=== PATIENT | male | born 1960 | race Caucasian/White ===

== ENCOUNTER 2019-08-18 15:30 | Outpatient (CLI) | payer BC, SELFPAY ==
--- NOTE | ~2019-08-18 | XR_ITS ---
EXAMINATION: XR chest 2V 08/18/2019 15:47 INDICATION: Cough PROCEDURE: 2 view chest COMPARISON: No prior studies for comparison. FINDINGS: The lungs are clear. The cardiomediastinal silhouette is within normal limits. There are no pleural effusions. There is no pneumothorax suspected. IMPRESSION: 1: NO ACUTE CARDIOPULMONARY DISEASE. Reviewed, dictated and finalized at location A.
[2019-08-18 16:13] LABS: Basophils Percent Auto 0.2 % (0.2-1.2); Eosinophils Absolute Auto 0.2 K/mm3 (0-0.3); Eosinophils Percent Auto 3.7 % (0-4.4); Hemoglobin 15.1 g/dL (14.0-18.0); Immature Granulocyte Absolute 0.02 K/mm3 (0.00-0.031); Immature Granulocyte Percent A 0.5 % (0-0.5); Lymphocytes Absolute Auto 1.56 K/mm3 (0.9-3.2); Lymphocytes Percent Auto 36.1 % (18.3-44.2); Mean Corpuscular HGB Conc 35.1 g/dl (32-36); Mean Corpuscular Hemoglobin 31.9 pg (26-34); Mean Corpuscular Volume 90.7 fl (80-100); Mean Platelet Volume 10.6 fl (7.4-10.4); Monocytes Absolute Auto 0.5 K/mm3 (0.1-0.6); Monocytes Percent Auto 10.9 % (2.6-8.5); Neutrophils Absolute Auto 2.1 K/mm3 (1.3-6.7); Neutrophils Percent Auto 48.6 % (45.5-73.1); Platelet Count Result 226 k/mm3 (150-375); Red Blood Count 4.74 M/mm3 (4.6-6.20); Red Cell Distribution Width 12.2 % (11.5-14.5); White Blood Count 4.3 K/mm3 (4.5-10.0)
[2019-08-18 16:31] LABS: Alanine Aminotransferase 30 U/L (4-50); Albumin Level 4.2 g/dL (3.5-5.1); Alkaline Phosphatase 84 U/L (38-126); Aspartate Amino Transferase 33 U/L (17-59); Bilirubin,Total 0.4 mg/dL (0.2-1.3); Blood Urea Nitrogen 14 mg/dL (9-20); Calcium 8.8 mg/dL (8.4-10.2); Carbon Dioxide 30 mmol/L (22-30); Chloride 103 mmol/L (98-107); Cholesterol 204 mg/dL (0-200); Estimated Glomerular Filt Rate > 60; Glucose 103 mg/dL (75-110); HDL Direct 34 mg/dL; Potassium 4.5 mmol/L (3.4-5.0); Sodium 136 mmol/L (137-145); Triglycerides 322 mg/dL (<150)
[2019-08-18 16:42] LABS: LDL Cholesterol Direct 126 mg/dL
[2019-08-18 17:02] LABS: Prostate Specific Antigen 0.2 ng/mL (< OR = 4.0)
[2019-08-18 17:15] LABS: Free T4 Free Thyroxine 0.84 ng/mL (0.78-2.19)
== END 2019-08-18 15:31 | disposition home or self-care (01) ==
PROVIDERS: PCP Family Medicine; Visit Provider Family Medicine
DX: Z77.090 Contact with and (suspected) exposure to asbestos (principal); Z80.0 Family history of malignant neoplasm of digestive organs; Z00.00 Encounter for general adult medical examination without abnormal findings; R05 Cough
CPT/HCPCS: 36415; 71046; 80053; 80061; 84153; 84439; 84443; 85025; G0103

== ENCOUNTER 2020-11-06 10:25 | Outpatient (CLI) | payer BC, SELFPAY ==
--- NOTE | ~2020-11-06 | US_ITS ---
EXAMINATION: US venous doppler LE RT DATE: 11/06/2020 11:01 INDICATION: Lower limb swelling. Acute embolism. TECHNIQUE: Grayscale ultrasound images without and with compression and Doppler ultrasound images of the right lower extremity veins were obtained. COMPARISON: None. FINDINGS: There is noncompressible deep venous thrombosis filling the distal right femoral vein, the popliteal vein, peroneal veins and posterior tibial veins. The visualized portions of right common femoral vein , profunda (deep) femoral vein, proximal to mid femoral vein, gastrocnemius vein and greater saphenou s vein outflow are patent. IMPRESSION: 1. Deep venous thrombosis beginning above the knee in the distal right femoral vein and extending di stally through the popliteal and into the peroneal and posterior tibial veins at the calf. Reviewed, dictated and finalized at location A. IMPRESSION: 1. Deep venous thrombosis beginning above the knee in the distal right femoral vein and extending distally through the popliteal and into the peroneal and po sterior tibial veins at the calf.
== END 2020-11-06 10:26 | disposition home or self-care (01) ==
PROVIDERS: PCP Family Medicine; Visit Provider Family Medicine
DX: I82.409 Acute embolism and thrombosis of unspecified deep veins of unspecified lower extremity (principal); R60.0 Localized edema; I82.411 Acute embolism and thrombosis of right femoral vein; I82.431 Acute embolism and thrombosis of right popliteal vein; I82.451 Acute embolism and thrombosis of right peroneal vein; I82.441 Acute embolism and thrombosis of right tibial vein
CPT/HCPCS: 93971

== ENCOUNTER 2020-11-23 09:12 | Outpatient (CLI) | payer BC, SELFPAY ==
--- NOTE | ~2020-11-23 | CT_ITS ---
EXAMINATION: CTA chest PE protocol EXAM DATE: 11/23/2020 09:36 INDICATION: I26.99 - Other pulmonary embolism without acute cor pulmo... Right lower extremity DVT. TECHNIQUE: Spiral CTA of the chest (pulmonary arteries) was performed with 100 cc Omnipaque 350 intr avenous contrast injection. Images were acquired during the pulmonary arterial phase. Coronal maxi mum intensity projection 3D-reconstructions were created by the technologist on dedicated workstation . Axial, coronal and sagittal reformatted images were reviewed. The dose-length product (DLP) for t his examination was 679.95 mGy-cm. The exposure was tailored according to patient size (auto mA exp osure control), and iterative reconstruction (ASIR) was used as additional dose reduction technique. There is no prior study for comparison. FINDINGS: Pulmonary arteries are well opacified and without intraluminal filling defects. No thora cic aortic dissection. Several calcified right lung granulomas. The lungs are otherwise clear. The re are no pleural or pericardial effusions. Tracheobronchial tree is patent. There is no mediasti nal, hilar or axillary lymphadenopathy. There is no pneumothorax. Heart normal in size. No evid ence of coronary arterial calcification. Upper abdomen is unremarkable. There is thoracic spondylo sis without osteoblastic or osteolytic lesions identified. IMPRESSION: 1. Unremarkable CT pulmonary exam Reviewed, dictated and finalized at location B.
== END 2020-11-23 09:13 | disposition home or self-care (01) ==
LOC: ANHIMG 09:13
PROVIDERS: PCP Family Medicine; Visit Provider Family Medicine
DX: I26.99 Other pulmonary embolism without acute cor pulmonale (principal)
CPT/HCPCS: 71275; Q9967

== ENCOUNTER 2021-03-04 07:35 | Outpatient (CLI) | payer BC, SELFPAY ==
[2021-03-04 08:11] LABS: Alanine Aminotransferase 37 U/L (4-50); Albumin Level 4.3 g/dL (3.5-5.1); Alkaline Phosphatase 76 U/L (38-126); Anion Gap 10 mmol/L (8-16); Aspartate Amino Transferase 30 U/L (17-59); Bilirubin,Total 0.4 mg/dL (0.2-1.3); Blood Urea Nitrogen 22 mg/dL (9-20); Calcium 9.1 mg/dL (8.4-10.2); Carbon Dioxide 26 mmol/L (22-30); Chloride 103 mmol/L (98-107); Cholesterol 197 mg/dL (0-200); Estimated Glomerular Filt Rate > 60; Glucose 119 mg/dL (65-110); HDL Direct 32 mg/dL; Potassium 4.5 mmol/L (3.4-5.0); Sodium 139 mmol/L (137-145); Triglycerides 131 mg/dL (<150)
[2021-03-04 08:22] LABS: LDL Cholesterol Direct 129 mg/dL
[2021-03-04 08:35] LABS: Basophils Percent Auto 0.4 % (0.2-1.2); Eosinophils Absolute Auto 0.2 K/mm3 (0-0.3); Eosinophils Percent Auto 3.3 % (0-4.4); Hematocrit 43.1 % (42.0-52.0); Hemoglobin 14.6 g/dL (14.0-18.0); Immature Granulocyte Absolute 0.01 K/mm3 (0.00-0.031); Immature Granulocyte Percent A 0.2 % (0-0.5); Lymphocytes Absolute Auto 1.69 K/mm3 (0.9-3.2); Lymphocytes Percent Auto 37.6 % (18.3-44.2); Mean Corpuscular HGB Conc 33.9 g/dl (32-36); Mean Corpuscular Hemoglobin 30.7 pg (26-34); Mean Corpuscular Volume 90.5 fl (80-100); Mean Platelet Volume 10.6 fl (7.4-10.4); Monocytes Absolute Auto 0.6 K/mm3 (0.1-0.6); Monocytes Percent Auto 12.4 % (2.6-8.5); Neutrophils Absolute Auto 2.1 K/mm3 (1.3-6.7); Neutrophils Percent Auto 46.1 % (45.5-73.1); Platelet Count Result 259 k/mm3 (150-375); Red Blood Count 4.76 M/mm3 (4.6-6.20); Red Cell Distribution Width 12.4 % (11.5-14.5); White Blood Count 4.5 K/mm3 (4.5-10.0)
== END 2021-03-04 07:36 | disposition home or self-care (01) ==
LOC: ANHLAB 07:37
PROVIDERS: PCP Family Medicine; Visit Provider Physician Assistant Medical
DX: E78.5 Hyperlipidemia, unspecified (principal); R53.83 Other fatigue
CPT/HCPCS: 36415; 80053; 80061; 84443; 85025

== ENCOUNTER 2021-03-18 14:33 | Outpatient (CLI) | payer BC, SELFPAY ==
--- NOTE | 2021-03-18 14:46 | ECHO_ITS ---
Patient Info Name: Lebron Han Age: 60 years : 1960 Gender: Male Ht: 73 in Wt: 246 lbs BSA: 2.43 m2 HR: 62 bpm BP: 149 / 82 mmHg Technical Quality: Fair Exam Date: 03/18/2021 2:52 PM Exam Location: [facility] Patient Status: Outpatient Admit Date: 03/18/2021 Staff Ordering Physician: Ian Nunes PA-C Vacuum Form Operator: Lena Beltran RDCS Attending Provider: Ian Nunes PA-C Referring Physician: Roslyn VARELA Exam Type: CA echo doppler color flow Study Info Indications R00.1 - Bradycardia, unspecified Complete two-dimensional, color flow and Doppler transthoracic echocardiogram is performed. Summary 1. Complete two-dimensional, color flow and Doppler transthoracic echocardiogram is performed. 2. Left ventricular chamber dimension is normal. 3. Left ventricular systolic function is normal, estimated at 60-65%. 4. The left ventricular diastolic function is grade I diastolic dysfunction. 5. E/e' 7 is not elevated. 6. Global longitudinal strain is slightly abnormal at -16.9%. 7. No pulmonary hypertension, estimated pulmonary arterial systolic pressure is 19 mmHg. Left Ventricle E/e' 7 is not elevated. Global longitudinal strain is slightly abnormal at -16.9%. Left ventricular chamber dimension is normal. Left ventricular systolic function is normal, estimated at 60-65%. The left ventricular diastolic function is grade I diastolic dysfunction. Right Ventricle Right ventricular chamber dimension is normal. Right ventricular systolic function is normal. Left Atria Left atrial chamber dimension is normal. Right Atria Right atrial chamber dimension is normal. Aortic Valve The aortic valve is trileaflet. There is no aortic valve stenosis. There is no aortic valve regurgitation. Pulmonic Valve There is no pulmonic regurgitation. Mitral Valve There is no mitral valve stenosis. There is no mitral valve regurgitation. Tricuspid Valve There is no tricuspid valve regurgitation. No pulmonary hypertension, estimated pulmonary arterial systolic pressure is 19 mmHg. Pericardium/Pleural There is no pericardial effusion. Inferior Vena Cava Normal inferior vena cava with >50% collapse upon inspiration consistent with normal right atrial pressure, 5 mmHg. Aorta The aortic root size at the sinus of Valsalva is normal. Left Ventricular Outflow Tract Name Value Normal LVOT 2D LVOT Diameter 2.0 cm LVOT Doppler LVOT Peak Gradient 5 mmHg LVOT Mean Gradient 3 mmHg LVOT VTI 22 cm LVOT VTI/AV VTI Ratio 0.9 LVOT Stroke Volume 70 ml LVOT CO 4.6 l/min LVOT CI 1.9 l/min/m2 Pulmonic Valve Name Value Normal RVOT Doppler
== END 2021-03-18 14:34 | disposition home or self-care (01) ==
PROVIDERS: PCP Family Medicine; Visit Provider Physician Assistant Medical
DX: R00.1 Bradycardia, unspecified (principal); R53.83 Other fatigue; R06.02 Shortness of breath; R93.1 Abnormal findings on diagnostic imaging of heart and coronary circulation
CPT/HCPCS: 93306

== ENCOUNTER 2021-11-06 14:41 | Outpatient (CLI) | payer BC, SELFPAY ==
--- NOTE | ~2021-11-06 | XR_ITS ---
XR cervical spine 4-5V 11/06/2021 14:59 Indication: Cervicalgia Procedure: 4 view cervical spine Comparison: No prior studies for comparison. Findings: There is moderate degenerative spondylosis at C5-6 and C6-7. Straightening of cervical lord osis. No prevertebral soft tissue swelling. Odontoid process is normal. Lateral masses are aligned. L bandar apices are normal. Impression: 1: Moderate cervical spondylosis. Reviewed, dictated and finalized at location B. Impression: 1: Moderate cervical spondylosis.
== END 2021-11-06 14:42 | disposition home or self-care (01) ==
PROVIDERS: PCP Family Medicine; Visit Provider Family Medicine
DX: M54.2 Cervicalgia (principal); M47.812 Spondylosis without myelopathy or radiculopathy, cervical region
CPT/HCPCS: 72050

== ENCOUNTER 2021-11-13 09:07 | Outpatient (CLI) | payer BC, SELFPAY ==
--- NOTE | 2021-11-13 14:05 | WPDPFTINT ---
PFT Procedure Performed PFT Procedure Performed Spirometry with Pre/Post Bronchodilator Plethysmography (Lung Vol) Diffusing Cap (DLCO) Flow Vol Loop PFT Interpretation This is a pulmonary function test with pre and post-bronchodilator spirometry, plethysmography and diffusing capacity. The test was performed and results interpreted in accordance with the 2019 and 2005 ATS/ERS Task Force guidelines respectively using the Global Lung Function Initiative-2012 reference equations. Patient demonstrated good effort and cooperation. Reproducibility criteria were met. The quality of the pre bronchodilator spirometry maneuver was Grade A and post bronchodilator spirometry maneuver was Grade A. Findings: Spirometry: The contour the inspiratory and expiratory flow tracing are normal. The pre bronchodilator FVC is 4.89 L, 97% predicted. The pre bronchodilator FEV1 is 3.71 L, 96% predicted. The pre bronchodilator FEV1: FVC ratio 76%. The post bronchodilator FVC is 5.03 L, representing a 3% increase. The post bronchodilator FEV1 is 3.84 L, representing a 3% increase. The post bronchodilator FEV1: FVC ratio 76%. Plethysmography: The total lung capacity 7.07 L, 95% predicted. The functional residual capacity is 2.75 L, 71% predicted. The residual volume is 2.18 L, 93% predicted. Diffusing capacity: The diffusion capacity unadjusted for hemoglobin and carboxyhemoglobin is 29.4, 100% predicted. The diffusing capacity adjusted for alveolar volume is 4.72, 113% predicted. Impression: The spirometry is normal without evidence of an obstructive abnormality. There is no significant improvement after inhaling a single dose of albuterol. The lung volumes are normal. The diffusing capacity is normal. There are no prior studies for comparison
== END 2021-11-13 09:08 | disposition home or self-care (01) ==
PROVIDERS: PCP Family Medicine; Visit Provider Family Medicine
DX: Z77.090 Contact with and (suspected) exposure to asbestos (principal)
CPT/HCPCS: 94060; 94726; 94729

== ENCOUNTER → 2021-11-21 07:06 | Outpatient (CLI) | payer BC, SELFPAY ==
--- NOTE | ~2021-11-21 | MR_ITS ---
EXAMINATION: MR cervical spine wo con DATE: 11/21/2021 07:35 INDICATION: Neck pain. Bilateral arm paresthesias. TECHNIQUE: Magnetic resonance imaging (MRI) of the cervical spine was performed without intravenous c ontrast. Sequences included sagittal T2-weighted FSE, sagittal T2-weighted FS FSE, sagittal T1-weight ed FSE, axial MERGE, and axial T2-weighted FSE. COMPARISON: Cervical spine MRI 06/19/2007 FINDINGS: There is kyphosis of cervical spine. There is 2 mm retrolisthesis of C5 on C6. There is mil d chronic anterior wedging of C5 vertebral body. There is mildly decreased disc height at C4-C5. Ther e is moderately decreased disc height at C5-C6 and C6-C7 with endplate remodeling. The spinal cord si gnal intensity is normal. The following disc levels are specifically discussed: C2-C3: The disc does not extend beyond the endplate margin. There is no uncovertebral joint osteoarth ritis. There is mild bilateral facet joint osteoarthritis. There is no neural foraminal stenosis. The re is no central canal stenosis. C3-C4: The disc does not extend beyond the endplate margin. There is mild bilateral uncovertebral nikhil nt osteoarthritis. There is severe right and moderate left facet joint osteoarthritis. There is mild bilateral neural foraminal stenosis. There is no central canal stenosis. C4-C5: The disc does not extend beyond the endplate margin. There is mild bilateral uncovertebral nikhil nt osteoarthritis. There is mild bilateral facet joint osteoarthritis. There is mild bilateral neural foraminal stenosis. There is no central canal stenosis. C5-C6: The disc is bulging. There is moderate and severe left uncovertebral joint osteoarthritis. The re is moderate bilateral facet joint osteoarthritis. There is mild right and moderate left neural for aminal stenosis. There is mild central canal stenosis with ventral indentation of the spinal cord. C6-C7: The disc is bulging. There is severe left uncovertebral joint osteoarthritis. There is moderat e left facet joint osteoarthritis. There is moderate left neural foraminal stenosis. There is mild ce ntral canal stenosis. C7-T1: The disc does not extend beyond the endplate margin. There is no uncovertebral joint osteoarth ritis. There is mild bilateral facet joint osteoarthritis. There is no neural foraminal stenosis. The re is no central canal stenosis. IMPRESSION: 1. Moderate cervical spondylosis, worsened from 06/19/2007. Reviewed, dictated and finalized at location A.
== END ==
PROVIDERS: PCP Family Medicine; Visit Provider Family Medicine
DX: M47.813 Spondylosis without myelopathy or radiculopathy, cervicothoracic region (principal); M48.03 Spinal stenosis, cervicothoracic region; N20.0 Calculus of kidney
CPT/HCPCS: 72141

== ENCOUNTER 2022-02-17 09:56 | Outpatient (CLI) | payer BC, SELFPAY ==
--- NOTE | 2022-02-17 11:30 | NEURO_ITS ---
Impression: # Complains of numbness of hands. # No Carpal Tunnel Syndrome except mild evolving sensory nerves involvement. # Bilateral ulnar neuropathy across the elbows. # Normal needle/EMG exam. Motor Nerve Conduction Upper Extremities Median Nerve Conduction Velocity (m/sec) Terminal Latency (msec) Response Voltage(mV) Elbow-Wrist Wrist Elbow Wrist Right 58 3.8 2 2 Left 59 3.4 4 4 Ulnar Nerve Conduction Velocity (m/sec) Terminal Latency (msec) Response Voltage(mV) Above Elbow Below Elbow Wrist Above Elbow Below Elbow Wrist Right 49 60 2.5 5 5 6 Left 51 60 2.7 5 4 6 F-Wave Latency Median (ms) Ulnar (ms) Right 29.8 30.9 Left 31.5 30.5 Sensory Nerve Conduction Upper Extremities Median Nerve Stimulation Terminal Latency (msec) Wrist/Digit Response Voltage (uV) Wrist Right 4.0/3.7 28/29 Left 3.7/3.6 15/15 Ulnar Nerve Stimulation Terminal Latency (msec) Wrist/Digit Response Voltage (uV) Wrist Right 2.8 18 Left 2.7 21 Radial Nerve Terminal Latency (msec) Response Voltage(mV) Right 1.9 25 Left 2.2 42 Left Right Muscles Examined Fibrillation Fasciculation Scarcity Voltage Duration Left Right Left Right Left Right Left Right Left Right Deltoid Biceps X X Brachioradialis Triceps X X Pronator Teres X X Ext Indicis X X Ext Digitorum X X Abd Poll Brev X X 1st Dorsal Interosseus Paraspinals MTDD
== END 2022-02-17 09:57 | disposition home or self-care (01) ==
LOC: ANHNEURO 09:57
PROVIDERS: PCP Family Medicine; Visit Provider Family Medicine
DX: R20.0 Anesthesia of skin (principal); G56.23 Lesion of ulnar nerve, bilateral upper limbs
CPT/HCPCS: 95886; 95911

== ENCOUNTER 2022-05-19 11:34 | Outpatient (CLI) | payer BC, SELFPAY ==
[2022-05-19 13:06] LABS: Alanine Aminotransferase 29 U/L (6-50); Albumin Level 4.3 g/dL (3.5-5.1); Alkaline Phosphatase 75 U/L (38-126); Anion Gap 4 mmol/L (8-16); Aspartate Amino Transferase 27 U/L (17-59); Bilirubin,Total 0.5 mg/dL (0.2-1.3); Blood Urea Nitrogen 11 mg/dL (9-20); Carbon Dioxide 28 mmol/L (22-30); Chloride 106 mmol/L (98-107); Cholesterol 220 mg/dL (0-200); Estimated Glomerular Filt Rate > 60; Glucose 107 mg/dL (65-110); HDL Direct 36 mg/dL; Potassium 4.4 mmol/L (3.4-5.0); Sodium 138 mmol/L (137-145); Triglycerides 72 mg/dL (<150)
[2022-05-19 13:17] LABS: LDL Cholesterol Direct 133 mg/dL
[2022-05-19 17:17] LABS: Prostate Specific Antigen 0.3 ng/mL (< OR = 4.0)
== END 2022-05-19 11:35 | disposition home or self-care (01) ==
LOC: ANHLAB 11:35
PROVIDERS: PCP Family Medicine; Visit Provider Family Medicine
DX: Z13.228 Encounter for screening for other metabolic disorders (principal); Z80.42 Family history of malignant neoplasm of prostate; Z12.5 Encounter for screening for malignant neoplasm of prostate
CPT/HCPCS: 36415; 80053; 80061; 84153; G0103

== ENCOUNTER 2022-05-27 00:29 | Day surgery (SDC) | payer BC, SELFPAY ==
[2022-05-15 14:16] VITALS: BMI 33.9
[2022-05-27 11:30] VITALS: BP 151/83; PULSE 68; RESP 18; TEMP 36.3; O2SAT 98; BMI 32.8
--- NOTE | 2022-05-27 11:43 | P.PNAN_ITS ---
Anes - Initial Pre Proc Eval Procedure: Operation Date: 05/27/22 13:00 Proposed Procedures p Screening Colonoscopy - Leonard Perez MD Date/Time: 05/27/22 11:43 Surgeon: Leonard Perez MD Pre Op Diagnosis: neoplasm screening Patient Data Age: 62 Gender: M Height: 1.83 m Weight: 109.8 kg Last Vital Signs Temp 97.3 F L 05/27/22 11:30 Pulse 68 05/27/22 11:30 Resp 18 05/27/22 11:30 BP 151/83 H 05/27/22 11:30 Pulse Ox 98 05/27/22 11:30 O2 Del Method Room Air 05/27/22 11:30 Allergies Allergy/AdvReac Type Severity Reaction Status Date / Time No Known Allergies Allergy Unknown Verified 05/27/22 11:33 Patient hx anesthesia problems: none Family hx anesthesia problems: none Results Review: All pre-operative results and documents have been reviewed as part of the pre- operative evaluation. [facility], [facility] Social History Social History Smoking status: Never smoker Smoking end date: 01/25/96 Alcohol intake: current Substance use: never Substance use type: does not use Living arrangements: with family Occupation/Education: occupation Gender identity (if verbalized by the patient): Male Spiritual care concerns: No Agree to blood products: Yes Anes - Eval Final PreProcedure Day of Procedure 05/27/22 11:43 Patient weight: normal Heart: regular rate and rhythm Lungs: clear to auscultation Airway: Mallampati scale class II Neurological: alert and oriented Last oral intake: >/= 8 hours ASA classification: II Emergent: no Anesthetic plan: proceed Anesthesia type and monitoring: general GIVS and standard monitoring Results Review: All pre-operative results and documents have been reviewed as part of the pre- operative evaluation. Informed Consent: The patient's anesthetic plan and its attendant risks and benefits were discussed with the patient/family/POA. Questions were solicited and answers provided to the satisfaction of the patient/family/POA.
[2022-05-27] MEDS: LACTATED RINGERS 1,000 ML 150 ML IV CONT (11:46)
--- NOTE | 2022-05-27 11:49 | P.HP_ITS ---
History of Present Illness History of Present Illness Consent: Risks, benefits, and alternatives have been discussed and questions answered. Patient agrees to proceed with procedure. Chief complaint: neoplasm screening Narrative: Lebron Han is a 62 year old male Presents for screening colonoscopy. Patient's current weight appetite and bowel movements are normal. Patient denies abdominal pain. He has had no bleeding. Family history is significant his mother had colon cancer. There is an aunt and a cousin on his father's side that have had colon cancer. Patient presents today for neoplasia screening colonoscopy. Review of Systems Review of Systems: Review of systems noncontributory. [facility] Social History Social History Smoking status: Never smoker Smoking end date: 01/25/96 Alcohol intake: current Substance use: never Substance use type: does not use Living arrangements: with family Occupation/Education: occupation Gender identity (if verbalized by the patient): Male Spiritual care concerns: No Agree to blood products: Yes Meds Home Medications and Allergies Allergies Allergy/AdvReac Type Severity Reaction Status Date / Time No Known Allergies Allergy Unknown Verified 05/27/22 11:33 Vital Signs Vital Signs - 24 hr 05/27/22 11:30 Temperature 97.3 F L Pulse Rate 68 Respiratory Rate 18 Blood Pressure 151/83 H Pulse Oximetry 98 Oxygen Delivery Room Air Exam Narrative: Physical exam reveals patient to be alert. Vital signs stable. HEENT exam is unremarkable. Patient is anicteric. Lungs are clear to auscultation and percussion. Heart is without murmur or extra sounds. Abdomen bowel sounds are present soft nontender with no organomegaly. Digital external rectal exam is normal. Assessment and Plan Assessment and plan (1) Family history of colon cancer in mother: Code(s): Z80.0 - Family history of malignant neoplasm of digestive organs Status: Acute Assessment and Plan: Patient's mother had colon cancer. For this reason surveillance colonoscopy is been advised now and consider this at 5 year intervals.
[2022-05-27 12:03] VITALS: BP 108/66; PULSE 65; RESP 18; O2SAT 98
[2022-05-27 12:13] VITALS: BP 110/73; PULSE 64; RESP 21; O2SAT 97
[2022-05-27 12:23] VITALS: BP 122/79; PULSE 60; RESP 20; O2SAT 79
== END 2022-05-27 12:33 | disposition home or self-care (01) ==
PROVIDERS: PCP Family Medicine; Visit Provider Internal Medicine Gastroenterology
PROC: 0DJD8ZZ Inspection of Lower Intestinal Tract, Via Natural or Artificial Opening Endoscopic (ICD-10-PCS; CPT 45378; principal; 2022-05-27 13:00)
DX: Z12.11 Encounter for screening for malignant neoplasm of colon (principal); K64.8 Other hemorrhoids; K57.30 Diverticulosis of large intestine without perforation or abscess without bleeding; Z80.0 Family history of malignant neoplasm of digestive organs
CPT/HCPCS: 45378; J2704; J7120

== ENCOUNTER 2022-07-30 06:25 | Day surgery (SDC) | payer BC, SELFPAY ==
[2022-07-22 14:09] VITALS: BMI 32.3
--- NOTE | 2022-07-22 14:15 | PC.NURSE ---
Report to the Outpatient Waiting Room, entrance under the green pavilion located off [facility], at time 0600 on date 07/30/22. Planned Procedure Time: 0730. Time changes happen often and if your time is changed the preop area will call you the afternoon before. - You and your visitor will be asked to self-screen and do not enter if you have any COVID symptoms. - A mask is optional within the hospital at this time. Patients may have clear liquids (water, carbonated beverages, clear teas, apple juice) until 3 hours prior to surgery with a maximum of 20 ounces. - No food from midnight until time of surgery Take the following medications with a SIP of water the morning of surgery: N/A DO NOT STOP ANY OF YOUR OTHER PRESCRIPTION MEDICATIONS PRIOR TO SURGERY EXCEPT THE FOLLOWING Medications to discontinue per physician: N/A Date to take last dose: N/A Please no make-up, nail spanish, hairspray, perfume, deodorant, or body powder the day of surgery. No jewelry (including any body piercings) or valuables the day of surgery, leave them at home. Please take a shower or bath the night before, or the morning of, surgery with an antibacterial soap. Wear comfortable, loose fitting clothing. - Jewelry must be removed prior to entering the operating room. Rings and piercings that are not removed may be cut off. - The hospital will not accept responsibility for valuables. - Please leave all valuables, including medications, at home the day of surgery. If you are going home after surgery, a licensed driver service technician must drive you home. - NO public transportation without another adult if you receive anesthesia. - We recommend that an adult stay with you for 24 hours following discharge. - We also recommend that you do not drive, make important decision, drink alcoholic beverages, or take any drugs that were not prescribed by your health care provider for at least 24 hours after your discharge time. Follow any additional instructions given to you from your surgeon. If you or anyone in your household have experienced Covid symptoms in the past week, please notify your surgeon or the nurse liaison at the phone number below for possible testing. Telephone instructions given to PT - JAXON MOSELEY and asked if any additional questions and then verbalized understanding. Patient advised to call surgeon office or pre surgery nurse liaison [phone] if any additional questions.
--- NOTE | 2022-07-29 18:30 | PM.SD2 ---
Same Day Admit/Disch: HPI History of Present Illness Chief complaint: Subcutaneous Mass Left Back 6 by 4 cm Narrative: Lebron Han is a 62 year old male who had a sq mass removed from his left lateral back about 5 years ago. He has developed a 6 cm subcutaneous mass in the same general area which is uncomfortable, sometimes painful. He was seen in the office and exam suggested a lipoma. He is taken to surgery now for excision. [facility] Past Medical History Medical History (Updated 07/30/22 @ 06:47 by Ian Coffey MD) DVT (deep venous thrombosis) poss Obesity Surgical History Surgical History H/O excision of mass excision of back cyst History of tonsillectomy Family History Family History Mother Hypertension Social History Social History Smoking packs per day: 1 Smoking cigarettes per day: 20.0 Years smoked: 10 Smoking pack-years: 10.00 Smoking status: Former smoker Tobacco type: cigarettes Smoking end date: 03/23/02 Alcohol intake: current Alcohol use details: SOCIAL - DID NOT GIVE AMOUNT Substance use: never Substance use type: does not use Living arrangements: with family Occupation/Education: occupation 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[employer] Gender identity (if verbalized by the patient): Male Spiritual care concerns: No Agree to blood products: Yes Same Day Admit/Disch: Med Pre-admit Medications Home Medications Medication Instructions Recorded Confirmed Type ketorolac 10 mg tablet 10 mg PO Q6H 4 days #10 tabs 07/30/22 Rx Exam Const: General: comfortable, no acute distress, alert and awake HENMT: Head: normocephalic and atraumatic Mouth: Yes Normal oral and palatal mucosa present Eyes: Conjunctivae: conjunctivae normal Pupils: Equal, round and reactive pupils present EOM: EOMs intact bilaterally Neck: Neck: normal visual inspection, no lymphadenopathy and nontender Resp: Effort & Inspection: normal respiratory effort Auscultation: clear to auscultation bilaterally Cardio: Rate: regular rate Rhythm: regular rhythm Heart sounds: no gallops, no murmurs and no rubs GI: Inspection: non-distended GI Palp: Yes Soft to palpation, No Tenderness to palpation present (GI), No Hepatomegaly present and No Splenomegaly present Back/Spine/Pelvis: Back: no CVA tenderness, mass (posterolateral left thoracic back,6x4cm), No erythema, No warmth and No ecchymosis Skin: Lesions: no lesions Rashes: no rashes Neuro: General: no focal motor deficits and CN's II-XI intact bilaterally Cranial nerves: Yes Equal, round and reactive pupils present, Yes Bilaterally intact EOM present, Yes facial symmetry and Yes Midline tongue present Speech: normal speech Motor exam (neuro): 5/5 motor strength present throughout and Motor abnormalities not present Extrem: General: no clubbing, cyanosis or edema and edema Psych: Affect: normal affect Thought process: Normal thought process present Insight: Good insight present (Psych) DS: Summary Time Spent with Patient Time attestation: Total time spent providing and/or coordinating discharge services: DS: Admitting Diagnosis Discharge Date 07/30/22 Admitting Diagnosis subcutaneous mass of left back, likely a lipoma. Plan is to excise under anesthesia as an outpatient. Procedure, risks, benefits discussed. Recovery discussed. All questions were answered. He agrees to go ahead. DS: Discharge Diagnosis Discharge Diagnosis (1) Subcutaneous mass of back: Code(s): R22.2 - Localized swelling, mass and lump, trunk Status: Acute Discharge Plan Discharge Patient Disposition: Home, Self-Care Discharge Instructions: May bathe or shower, wash over wound tomorrow. Okay to use soap. Okay to drive a car in 48 hours if not taking narco
--- NOTE | 2022-07-30 06:46 | P.PNAN_ITS ---
Anes - Initial Pre Proc Eval Procedure: Operation Date: 07/30/22 07:30 Proposed Procedures p Excision Subcutaneous Mass Left Back - Roberto Philip MD Date/Time: 07/30/22 06:46 Surgeon: Roberto Philip MD Pre Op Diagnosis: Subcutaneous Mass Left Back 6 by 4 cm Patient Data Age: 62 Gender: M Height: 1.85 m Weight: 111.15 kg Allergies Allergy/AdvReac Type Severity Reaction Status Date / Time No Known Allergies Allergy Unknown Verified 07/22/22 14:09 Home Medications Medication Instructions Recorded Confirmed Type No Home Medications 05/28/22 07/22/22 History Patient hx anesthesia problems: none Family hx anesthesia problems: none Results Review: All pre-operative results and documents have been reviewed as part of the pre- operative evaluation. [facility] Past Medical History Medical History (Updated 07/30/22 @ 06:47 by Ian Coffey MD) DVT (deep venous thrombosis) poss Obesity Surgical History Surgical History H/O excision of mass excision of back cyst History of tonsillectomy Family History Family History Mother Hypertension Social History Social History Smoking packs per day: 1 Smoking cigarettes per day: 20.0 Years smoked: 10 Smoking pack-years: 10.00 Smoking status: Former smoker Tobacco type: cigarettes Smoking end date: 03/23/02 Alcohol intake: current Alcohol use details: SOCIAL - DID NOT GIVE AMOUNT Substance use: never Substance use type: does not use Living arrangements: with family Occupation/Education: occupation 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 [employer] Gender identity (if verbalized by the patient): Male Spiritual care concerns: No Agree to blood products: Yes Anes - Eval Final PreProcedure Day of Procedure 07/30/22 06:46 Patient weight: obese Heart: regular rate and rhythm Lungs: clear to auscultation Airway: Mallampati scale class II Neurological: alert and oriented Last oral intake: >/= 8 hours ASA classification: II Emergent: no Anesthetic plan: proceed Anesthesia type and monitoring: general GIVS and standard monitoring Results Review: All pre-operative results and documents have been reviewed as part of the pre- operative evaluation. Informed Consent: The patient's anesthetic plan and its attendant risks and benefits were discussed with the patient/family/POA. Questions were solicited and answers provided to the satisfaction of the patient/family/POA.
--- NOTE | 2022-07-30 06:59 | WPDHPUPDATE1 ---
History and Physical Update Update Date/Time: 07/30/22 06:59 History and Physical has been reviewed, including an updated exam of the patient. There are NO changes in the patient's condition. Risks, benefits, and alternatives have been discussed and questions answered. Patient agrees to proceed with procedure.
[2022-07-30 07:16] VITALS: BP 146/80; PULSE 60; RESP 14; TEMP 36.1; O2SAT 98
[2022-07-30] MEDS: ceFAZolin 2 GM/D5W 50 ML 2 GM/50 ML BAG IVPB (07:17)
[2022-07-30] MEDS: LACTATED RINGERS 1,000 ML 30 ML IV CONT (07:25)
[2022-07-30] MEDS: BUPIVACAINE/EPINEPHRINE 0.5% 50 ML VIAL 30 ML INFILTRATE (07:34)
[2022-07-30 07:56] VITALS: BP 112/69; PULSE 62; RESP 14; O2SAT 97
--- NOTE | 2022-07-30 07:56 | W.PM.PROC2 ---
Procedure Note - Detailed Date of Procedure 07/30/22 Pre-op Diagnosis Subcutaneous Mass Left Back 6 by 4 cm Post-op Diagnosis Same Procedure Performed Excision subcutaneous mass left posterolateral back, 5 x 4 x 2 cm Surgeon Roberto Philip MD Anesthesia MAC and Local (0.5% Marcaine with epinephrine) Indications Patient has an enlarging subcutaneous mass of the left posterior lateral back. It is adjacent to but not connected with a scar from previous excision of a skin mass of the back. Clinically it is consistent with a lipoma. It has been getting larger and is occasionally painful. He is taken to surgery now for excision. Findings Subcutaneous 5 x 4 x 2 cm lipoma Description of Procedure Patient was checked in the preoperative holding area. The area of the subcutaneous mass was marked on the skin and the proposed incision was marked on the skin. He was taken to surgery and positioned in right lateral decubitus position. IV sedation was administered. Prep and drape was carried out. Local anesthetic was infiltrated in the area of the anticipated incision as well as a field block around the area of the subcutaneous mass. Incision was made and dissection was carried down through Sanjeev's fascia. We then encountered the subcutaneous mass which remained above the muscle. Using a combination of blunt and sharp dissection, the subcutaneous mass was then carefully dissected free from the surrounding subcutaneous and off the muscular fascia. There was no bleeding. Cautery had been used for hemostasis. The mass was measured and then submitted to pathology in formalin. The wound was infiltrated with additional local anesthetic. Sanjeev's fascia was closed with interrupted 3-0 Vicryl suture. Subcuticular interrupted 4-0 Vicryl skin stitches were placed followed by a running 4-0 Monocryl skin suture. The wound was dressed with Exofin surgical adhesive. The patient was awakened and taken to recovery in good condition. Sponge and needle counts were correct x2. Estimated Blood Loss -5 Drains No Packing No Pathology Yes (Subcutaneous mass of the back clinically consistent with lipoma) Complications No immediate complications Condition Stable Disposition Same day [facility] Billing Surgery - Charge Forward: Surgery Billing (Excision 5 cm subcutaneous mass of the back.)
[2022-07-30 08:15] VITALS: BP 128/77; PULSE 52; RESP 14; O2SAT 96
[2022-07-30 08:45] VITALS: BP 119/78; PULSE 50; RESP 14
[2022-07-30 09:10] VITALS: BP 123/75; PULSE 46; RESP 14
== END 2022-07-30 09:19 | disposition home or self-care (01) ==
PROVIDERS: PCP Family Medicine; Visit Provider Surgery
PROC: (CPT 21931; principal; 2022-07-30 07:30)
DX: D17.1 Benign lipomatous neoplasm of skin and subcutaneous tissue of trunk (principal); Z87.891 Personal history of nicotine dependence; E66.9 Obesity, unspecified; Z68.31 Body mass index [BMI] 31.0-31.9, adult
CPT/HCPCS: 21931; 88304; J0690; J2704; J3010; J7120

== ENCOUNTER 2022-12-15 15:34 | Outpatient (CLI) | payer BC, SELFPAY ==
--- NOTE | ~2022-12-15 | XR_ITS ---
XR shoulder LT min 2V 12/15/2022 15:53 Indication: Left shoulder pain Procedure: 4 views left shoulder Comparison: No prior studies for comparison. Findings: There is moderate osteoarthritis of the acromioclavicular joint. No fracture or traumatic m alalignment. Glenohumeral joint within normal limits. Impression: 1: Moderate osteoarthritis of the left acromioclavicular joint. Reviewed, dictated and finalized at location L. Impression: 1: Moderate osteoarthritis of the left acromioclavicular joint.
--- NOTE | ~2022-12-15 | XR_ITS ---
EXAMINATION: XR shoulder RT min 2V DATE: 12/15/2022 15:53 INDICATION: Right shoulder pain. TECHNIQUE: 4 views of right shoulder were obtained. COMPARISON: None. FINDINGS: Bone alignment is normal. No fracture. There is mild osteoarthritis of glenohumeral joint a nd severe osteoarthritis of acromioclavicular joint. IMPRESSION: 1. Polyarticular osteoarthritis. Reviewed, dictated and finalized at location A.
--- NOTE | ~2022-12-15 | XR_ITS ---
XR elbow RT min 3V 12/15/2022 15:53 Indication: Right elbow pain Procedure: 4 views right elbow Comparison: No prior studies for comparison. Findings: There is moderate osteoarthritis of the right elbow. Loose bodies are present along the med ial aspect of the elbow. No joint effusion. No acute fracture or traumatic malalignment. Impression: 1: Moderate osteoarthritis of the right elbow. Reviewed, dictated and finalized at location L. Impression: 1: Moderate osteoarthritis of the right elbow.
--- NOTE | ~2022-12-15 | XR_ITS ---
XR lumbar spine min 4V 12/15/2022 15:53 Indication: Low back pain. Procedure: 5 views lumbar spine Comparison: No prior studies for comparison. Findings: There is disc narrowing at all lumbar levels. There is grade 1 degenerative spondylolisthes is at L4-5. Vertebral body heights are maintained. There is lower thoracic spondylosis. No acute frac ture or traumatic malalignment. Sacral foramen are symmetric. Impression: 1: Moderate lumbar spondylosis. Reviewed, dictated and finalized at location L. Impression: 1: Moderate lumbar spondylosis.
== END 2022-12-15 15:35 ==
PROVIDERS: PCP Family Medicine; Visit Provider Family Medicine
DX: M54.50 Low back pain, unspecified (principal); M43.06 Spondylolysis, lumbar region; M19.011 Primary osteoarthritis, right shoulder; M19.021 Primary osteoarthritis, right elbow; M19.012 Primary osteoarthritis, left shoulder
CPT/HCPCS: 72110; 73030; 73080

== ENCOUNTER 2023-09-22 15:31 | Outpatient (CLI) | payer BC, SELFPAY ==
[2023-09-22 16:00] LABS: Basophils Percent Auto 0.7 % (0.2-1.2); Eosinophils Absolute Auto 0.1 K/mm3 (0-0.3); Eosinophils Percent Auto 3.3 % (0-4.4); Hematocrit 41.5 % (42.0-52.0); Hemoglobin 14.5 g/dL (14.0-18.0); Immature Granulocyte Absolute 0.01 K/mm3 (0.00-0.031); Immature Granulocyte Percent A 0.2 % (0-0.5); Lymphocytes Absolute Auto 1.48 K/mm3 (0.9-3.2); Lymphocytes Percent Auto 34.5 % (18.3-44.2); Mean Corpuscular HGB Conc 34.9 g/dl (32-36); Mean Corpuscular Hemoglobin 32.1 pg (26-34); Mean Corpuscular Volume 91.8 fl (80-100); Mean Platelet Volume 10.3 fl (7.4-10.4); Monocytes Absolute Auto 0.4 K/mm3 (0.1-0.6); Monocytes Percent Auto 9.1 % (2.6-8.5); Neutrophils Absolute Auto 2.2 K/mm3 (1.3-6.7); Neutrophils Percent Auto 52.2 % (45.5-73.1); Platelet Count Result 250 k/mm3 (150-375); Red Blood Count 4.52 M/mm3 (4.6-6.20); Red Cell Distribution Width 12.2 % (11.5-14.5); White Blood Count 4.3 K/mm3 (4.5-10.0)
[2023-09-22 16:17] LABS: Anion Gap 7 mmol/L (4-12); Blood Urea Nitrogen 18 mg/dL (9-20); Calcium 9.3 mg/dL (8.4-10.2); Carbon Dioxide 27 mmol/L (22-30); Chloride 104 mmol/L (98-107); Estimated Glomerular Filt Rate > 60; Glucose 94 mg/dL (65-110); Potassium 4.5 mmol/L (3.4-5.0); Sodium 138 mmol/L (137-145)
[2023-09-22 16:26] LABS: Platelet Estimate Adequate (Adequate)
[2023-09-22 16:27] LABS: Schistocytes None Seen
== END 2023-09-22 15:32 | disposition home or self-care (01) ==
LOC: ANHLAB 15:32
PROVIDERS: PCP Family Medicine; Visit Provider Family Medicine
DX: R53.83 Other fatigue (principal); Z13.228 Encounter for screening for other metabolic disorders
CPT/HCPCS: 36415; 80048; 85025

== ENCOUNTER 2024-02-15 13:47 | Observation (INO) | payer BC, SELFPAY ==
--- NOTE | ~2024-02-15 | US_ITS ---
RIGHT LOWER EXTREMITY VENOUS ULTRASOUND Ordering provider: Leslie Saunders History: . pain, s welling . Comparison: None. FINDINGS: --COMMON FEMORAL: Patent and free of thrombus. Normal compressibility, phasic flow and augmentation. --PROXIMAL SUPERFICIAL FEMORAL: Patent and free of thrombus. Normal compressibility, phasic flow and augmentation. --DISTAL SUPERFICIAL FEMORAL: Patent and free of thrombus. Normal compressibility, phasic flow and au gmentation. --POPLITEAL: Thrombosis is seen. --POSTERIOR TIBIAL: Patent and free of thrombus. Normal compressibility, phasic flow and augmentation . IMPRESSION: Deep vein thrombosis. Reviewed, dictated and finalized at location A. MAN/PROJECT MANAGER IMPRESSION: Deep vein thrombosis.
--- NOTE | ~2024-02-15 | NM_ITS ---
EXAMINATION: NM basilio stress w perfusion DATE: 02/16/2024 14:19 INDICATION: Dyspnea on exertion TECHNIQUE: Rest images were obtained following intravenous administration of 10.5 mCi Tc99m tetrofosm in (Myoview). The patient was infused intravenously with Lexiscan (Regadenoson). Then, 33.7 mCi Tc99m tetrofosmin (Myoview) was administered intravenously. At this point patient experienced a transient syncopal episode which was felt to be a vasovagal response. Rapid response was called and the patient was transferred to the ICU prior to obtaining the post stress imaging. COMPARISON: None. FINDINGS: On the rest images there is mild relative decreased uptake along the inferior wall which is likely within normal limits. There is a small focus of mild decreased activity at the mid anterosept al wall which is equivocal for small mild infarct.. IMPRESSION: 1. Incomplete study with no post stress imaging obtained due to a transient syncopal episode. 2. Small focus of mild decreased activity along the mid anteroseptal segment equivocal for small mild infarct. Reviewed, dictated and finalized at location A. BRITY MANAGER IMPRESSION: 1. Incomplete study with no post stress imaging obtained due to a transient syn copal episode. 2. Small focus of mild decreased activity along the mid anteroseptal segment eq uivocal for small mild infarct.
--- NOTE | ~2024-02-15 | CT_ITS ---
EXAMINATION: CT abdomen pelvis w con DATE: 02/16/2024 15:46 INDICATION: Deep venous thrombosis TECHNIQUE: Computed tomography (CT) of the abdomen and pelvis was performed with 100 mL Omnipaque-350 intravenous contrast. Automated exposure control and iterative reconstruction technique were employe d. The dose-length product was 936.83 mGy-cm. COMPARISON: None FINDINGS: Dependent atelectasis in the bilateral lower lobes. Heart size is normal. No pericardial or pleural e ffusion. A couple subcentimeter hepatic cyst. Gallbladder, spleen, pancreas, bilateral adrenal glands and kidneys are normal. There are few scattered clonic diverticula without adjacent inflammatory str anding to suggest diverticulitis. Small bowel and appendix are normal. Bladder is normal. No free int raperitoneal gas or fluid. No pathologically enlarged abdominal or pelvic lymphadenopathy. Transition al partially lumbarized S1 segment. Mild lumbar and lower thoracic spondylosis. IMPRESSION: 1. No acute intra-abdominal/pelvic process. Reviewed, dictated and finalized at location A. UNTANT BOOKKEEPER
--- NOTE | ~2024-02-15 | CT_ITS ---
EXAMINATION: CTA chest PE protocol DATE: 02/15/2024 16:18 INDICATION: RLE dvt, sob TECHNIQUE: Computed tomography angiography (CTA) of the chest was performed with 100 mL Omnipaque-350 intravenous contrast timed to evaluate the pulmonary arteries. Coronal maximum intensity projection 3D-reconstructions were created by the technologist. The dose-length product (DLP) was 616.91 mGy-cm. Automated exposure control and iterative reconstruction technique were employed. COMPARISON: 11/23/2020. FINDINGS: Lung parenchyma and airways: Calcified right middle lobe granulomas. Lingular scar/atelectasis. Bibas ilar dependent atelectasis. Patent airways. Pleura: Unremarkable. Thoracic inlet, axillae and chest wall: Unremarkable. Thoracic aorta: No significant dilation. No dissection. Mild arch calcification. Mediastinum: Normal. Heart and pericardium: Normal. Coronary artery calcifications: Absent. Upper abdomen: No significant finding. Bones: No acute osseous finding. Pulmonary arteries: Study quality: Adequate. No pulmonary emboli detected. IMPRESSION: No CT evidence of acute pulmonary embolus. No acute process detected in the chest. Reviewed, dictated and finalized at location K. ING MILL SUPERVISOR
[2024-02-15 13:49] VITALS: BP 144/68; PULSE 69; RESP 16; TEMP 36.8; O2SAT 98
--- NOTE | 2024-02-15 15:35 | ED.GENADULT ---
HPI - General Adult General Chief complaint: Recheck/Abnormal Lab/Rx <MIKALA Golden Last Filed: 02/15/24 15:47> Stated complaint: blood clot <MIKALA Golden Last Filed: 02/15/24 15:47> Time Seen by Provider: 02/15/24 15:38 <MIKALA Golden Last Filed: 02/15/24 15:47> Focused HPI: Patient is a 63 y/o male who presents to the ED with c/o pain and swelling in his R posterior leg. Patient reports having pain and swelling in his R posterior knee and up into his medial thigh for the past 1 week. States he has pain mostly in his thigh with walking, feels very tight. Reports hx of previous dvt in his RLE 4-5 years ago, was on xarelto for several months at that time. Is not currently on anticoagulation. Reports he has been feeling increasingly sob over the past few days, even with simple movements. Denies CP. Denies fevers, numbness, recent travel/surgery. Does note he has been sitting in a tree stand hunting frequently over the past 1 month. GENERAL: Well-appearing, obese with BMI of 33.4, and in no acute distress. HEAD: Normocephalic, atraumatic. CHEST: Clear to auscultation. ?No respiratory distress. HEART: Regular rate and rhythm.? MSK: Mild diffuse swelling throughout RLE. Tense in right thigh with tenderness medially extending to popliteal region. Sensation intact. Pedal pulses intact. NEURO: ?Alert and oriented x3. Patient screened in triage and initial orders placed.? ?Additional care and disposition to be based upon?diagnostic testing and treatment. <MIKALA Golden Last Filed: 02/15/24 15:47> Source: patient <MIKALA Golden Last Filed: 02/15/24 15:47> Mode of arrival: ambulatory <MIKALA Golden Last Filed: 02/15/24 15:47> Limitations: no limitations <MIKALA Golden Last Filed: 02/15/24 15:47> History of Present Illness HPI narrative: Agree with above. <Yenni Taylor MD - Last Filed: 02/15/24 21:27> Related Data Home medications: Home Medications Medication Instructions Recorded Confirmed No Home Medications 02/15/24 02/15/24 <Stephanie Croft PA-C - Last Filed: 02/15/24 15:47> Allergies/adverse reactions: Allergies Allergy/AdvReac Type Severity Reaction Status Date / Time No Known Allergies Allergy Unknown Verified 02/15/24 13:31 <Stephanie Croft PA-C - Last Filed: 02/15/24 15:47> Review of Systems Review of Systems: All systems reviewed & are unremarkable except as noted in HPI and below <Yenni Taylor MD - Last Filed: 02/15/24 21:27> FORMERLY [facility], [facility] Past Medical History Medical History: Medical History DVT (deep venous thrombosis) poss Obesity <Stephanie Croft PA-C - Last Filed: 02/15/24 15:47> Surgical History Surgical History: Surgical History H/O excision of mass 07/30/22 Excision subcutaneous mass left posterolateral back, 5 x 4 x 2 cm History of tonsillectomy <Stephanie Croft PA-C - Last Filed: 02/15/24 15:47> Family History Family History: Family History Mother Hypertension Cancer Grandparent Cancer Other Cancer <Stephanie Croft PA-C - Last Filed: 02/15/24 15:47> Social History Social History: Social History Smoking packs per day: 1 Smoking cigarettes per day: 20.0 Years smoked: 10 Smoking pack-years: 10.00 Smoking status: Former smoker Tobacco type: cigarettes Smoking end date: 03/23/02 Alcohol intake: current Alcohol use details: social Substance use: never Substance use type: does not use Current Housing: Decline to Answer Concerned About Future Housing: Decline to Answer Difficulty Paying Gas/Electric Bills: Decline to Answer Difficulty Paying for Meds: Decline to Answer Currently Unemployed: Decline to Answer Education: Decline to Answer Difficulty w/ Childcare or Family Care: Decline to Answer Living arrangements: with family Occupation/Education: occupation 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 EYES: PERRLA and EOMI. ENT: Grossly unremarkable NECK: Supple. CHEST: Clear to auscultation. No respiratory distress. HEART: Regular rate and rhythm ABDOMEN: Soft, nontender, nondistended EXTREMITIES: Normal range of motion. Mild diffuse swelling of the right lower extremity, distal pulses intact SKIN: Warm, dry, no rash. NEURO: No focal deficits. Alert and oriented x3. PSYCH: Normal mood and affect. <Yenni Taylor MD - Last Filed: 02/15/24 21:27> Course Vital Signs Vital signs: Vital Signs Temperature 98.2 F 02/15/24 13:49 Pulse Rate 69 02/15/24 13:49 Respiratory Rate 16 02/15/24 13:49 Blood Pressure 144/68 H 02/15/24 13:49 Pulse Oximetry 98 02/15/24 13:49 Temperature 97.8 F 02/15/24 20:46 Pulse Rate 63 02/15/24 20:46 Respiratory Rate 20 02/15/24 20:46 Blood Pressure 133/64 02/15/24 20:46 Pulse Oximetry 96 02/15/24 20:46 <Stephanie Croft PA-C - Last Filed: 02/15/24 15:47> Vital Signs Temperature 98.2 F 02/15/24 13:49 Pulse Rate 69 02/15/24 13:49 Respiratory Rate 16 02/15/24 13:49 Blood Pressure 144/68 H 02/15/24 13:49 Pulse Oximetry 98 02/15/24 13:49 Temperature 97.8 F 02/15/24 20:46 Pulse Rate 63 02/15/24 20:46 Respiratory Rate 20 02/15/24 20:46 Blood Pressure 133/64 02/15/24 20:46 Pulse Oximetry 96 02/15/24 20:46 <Yenni Taylor MD - Last Filed: 02/15/24 21:27> Medical Decision Making MDM Narrative Medical decision making narrative: MSE by MALACHI in triage. <Stephanie Croft PA-C - Last Filed: 02/15/24 15:47> MSE by MALACHI in triage. 63-year-old male presenting with concerns for DVT as well as exertional dyspnea for the last several weeks. Vitals stable. Exam remarkable for the above. EKG per my interpretation shows normal sinus rhythm, nonspecific T-wave changes, no ST elevations or depressions. Ultrasound of the right lower extremity reveals a DVT. CTA of the chest shows no pulmonary embolus. His troponin is elevated at 0.466. He does complain of exertional dyspnea for the last several weeks. Spoke with cardiology who agrees with aspirin and a heparin drip. He requires admission for further management. He is agreeable with this plan. Spoke with the hospitalist who has accepted him for admission. <Yenni Taylor MD - Last Filed: 02/15/24 21:27> Differential Diagnosis Differential Diagnosis: DVT, PE, ACS, NSTEMI <Yenni Taylor MD - Last Filed: 02/15/24 21:27> Medical Records Medical records reviewed: Yes I reviewed the external patient's medical records. <Yenni Taylor MD - Last Filed: 02/15/24 21:27> Vital Signs Vital Signs: Vital Signs Temperature 98.2 F 02/15/24 13:49 Pulse Rate 69 02/15/24 13:49 Respiratory Rate 16 02/15/24 13:49 Blood Pressure 144/68 H 02/15/24 13:49 Pulse Oximetry 98 02/15/24 13:49 Temperature 97.8 F 02/15/24 20:46 Pulse Rate 63 02/15/24 20:46 Respiratory Rate 20 02/15/24 20:46 Blood Pressure 133/64 02/15/24 20:46 Pulse Oximetry 96 02/15/24 20:46 <Stephanie Croft PA-C - Last Filed: 02/15/24 15:47> Vital Signs Temperature 98.2 F 02/15/24 13:49 Pulse Rate 69 02/15/24 13:49 Respiratory Rate 16 02/15/24 13:49 Blood Pressure 144/68 H 02/15/24 13:49 Pulse Oximetry 98 02/15/24 13:49 Temperature 97.8 F 02/15/24 20:46 Pulse Rate 63 02/15/24 20:46 Respiratory Rate 20 02/15/24 20:46 Blood Pressure 133/64 02/15/24 20:46 Pulse Oximetry 96 02/15/24 20:46 <Yenni Taylor MD - Last Filed: 02/15/24 21:27> Lab Data Lab results reviewed: Yes I reviewed the patient's lab results. <Yenni Taylor MD - Last Filed: 02/15/24 21:27> Result diagrams: 02/15/24 15:45 02/15/24 15:45 <Stephanie Croft PA-C - Last Filed: 02/15/24 15:47> Labs: Lab Results 02/15/24 02/15/24 02/15/24 Range/Units 15:45 15:45 15:45 WBC 5.3 (4.5-10.0) K/mm3 RBC 4.50 L (4.6-6.20) M/mm3 Hgb 14.1 (14.0-18.0) g/dL Hct 41.4 L (42.0-52.0) % MCV 92.0 (80-100) fl MCH 31.3 (26-34) pg MCHC 34.1 (32-36) g/dl RDW 12.0 (11.5-14.5) % Plt Count 249 (150-375) k/mm3 MPV 10.3 (7.4-10.4) fl Immature Gran % (Auto) 0.6 H (0-0.5) % Neut % (Auto) 68.9 (45.5-73.1) % Lymph % (Auto) 15.3 L (18.3-44.2) % [place] % (Auto) 9.3 H (2.6-8.5) % Eos % (Auto) 5.5 H (0-4.4) % Baso % (Auto) 0.4 (0.2-1.2) % Lymph # (Auto) 0.81 L (0.9-3.2) K/mm3 [place] # (Auto) 0.5 (0.1-0.6) K/mm3 Eos # (Auto) 0.3 (0-0.3) K/mm3 Baso # (Auto) 0.0 (0.0-0.1) K/mm3 Abs Immat Gran (auto) 0.03 (0.00-0.031) K/mm3 Absolute Neuts (auto) 3.6 (1.3-6.7) K/mm3 Absolute Nucleated RBC 0.000 (0.0-0.012) K/mm3 Nucleated RBC % 0.0 (0.0-0.2) % PT 14.1 (11.1-14.7) Seconds INR 1.1 APTT 38.3 H (22.3-36.8) Seconds Sodium Cancelled 136 L Potassium Cancelled 3.8 Chloride Cancelled Carbon Dioxide Anion Gap BUN Creatinine Estim Creat Clear Calc Estimated GFR Glucose Calcium Total Bilirubin AST ALT Alkaline Phosphatase Troponin I (0.000-0.034) ng/mL NT-Pro-B Natriuret Pep (19.9-100) pg/mL Total Protein Albumin 02/15/24 02/15/24 02/15/24 Range/Units 15:45 15:45 15:45 WBC (4.5-10.0) K/mm3 RBC (4.6-6.20) M/mm3 Hgb (14.0-18.0) g/dL Hct (42.0-52.0) % MCV (80-100) fl MCH (26-34) pg MCHC (32-36) g/dl RDW (11.5-14.5) % Plt Count (150-375) k/mm3 MPV (7.4-10.4) fl Immature Gran % (Auto) (0-0.5) % Neut % (Auto) (45.5-73.1) % Lymph % (Auto) (18.3-44.2) % [place] % (Auto) (2.6-8.5) % Eos % (Auto) (0-4.4) % Baso % (Auto) (0.2-1.2) % Lymph # (Auto) (0.9-3.2) K/mm3 [place] # (Auto) (0.1-0.6) K/mm3 Eos # (Auto) (0-0.3) K/mm3 Baso # (Auto) (0.0-0.1) K/mm3 Abs Immat Gran (auto) (0.00-0.031) K/mm3 Absolute Neuts (auto) (1.3-6.7) K/mm3 Absolute Nucleated RBC (0.0-0.012) K/mm3 Nucleated RBC % (0.0-0.2) % PT (11.1-14.7) Seconds INR APTT (22.3-36.8) Seconds Sodium Potassium Chloride 101 Carbon Dioxide Cancelled 29 Anion Gap Cancelled 6 BUN Cancelled Creatinine Estim Creat Clear Calc Estimated GFR Glucose Calcium Total Bilirubin AST ALT Alkaline Phosphatase Troponin I (0.000-0.034) ng/mL NT-Pro-B Natriuret Pep (19.9-100) pg/mL Total Protein Albumin 02/15/24 02/15/24 02/15/24 Range/Units 15:45 15:45 15:45 WBC (4.5-10.0) K/mm3 RBC (4.6-6.20) M/mm3 Hgb (14.0-18.0) g/dL Hct (42.0-52.0) % MCV (80-100) fl MCH (26-34) pg MCHC (32-36) g/dl RDW (11.5-14.5) % Plt Count (150-375) k/mm3 MPV (7.4-10.4) fl Immature Gran % (Auto) (0-0.5) % Neut % (Auto) (45.5-73.1) % Lymph % (Auto) (18.3-44.2) % [place] % (Auto) (2.6-8.5) % Eos % (Auto) (0-4.4) % Baso % (Auto) (0.2-1.2) % Lymph # (Auto) (0.9-3.2) K/mm3 [place] # (Auto) (0.1-0.6) K/mm3 Eos # (Auto) (0-0.3) K/mm3 Baso # (Auto) (0.0-0.1) K/mm3 Abs Immat Gran (auto) (0.00-0.031) K/mm3 Absolute Neuts (auto) (1.3-6.7) K/mm3 Absolute Nucleated RBC (0.0-0.012) K/mm3 Nucleated RBC % (0.0-0.2) % PT (11.1-14.7) Seconds INR APTT (22.3-36.8) Seconds Sodium Potassium Chloride Carbon Dioxide Anion Gap BUN 12 D Creatinine Cancelled 0.90 Estim Creat Clear Calc Cancelled 101 Estimated GFR Cancelled Glucose Calcium Total Bilirubin AST ALT Alkaline Phosphatase Troponin I (0.000-0.034) ng/mL NT-Pro-B Natriuret Pep (19.9-100) pg/mL Total Protein Albumin 02/15/24 02/15/24 02/15/24 Range/Units 15:45 15:45 15:45 WBC (4.5-10.0) K/mm3 RBC (4.6-6.20) M/mm3 Hgb (14.0-18.0) g/dL Hct (42.0-52.0) % MCV (80-100) fl MCH (26-34) pg MCHC (32-36) g/dl RDW (11.5-14.5) % Plt Count (150-375) k/mm3 MPV (7.4-10.4) fl Immature Gran % (Auto) (0-0.5) % Neut % (Auto) (45.5-73.1) % Lymph % (Auto) (18.3-44.2) % [place] % (Auto) (2.6-8.5) % Eos % (Auto) (0-4.4) % Baso % (Auto) (0.2-1.2) % Lymph # (Auto) (0.9-3.2) K/mm3 [place] # (Auto) (0.1-0.6) K/mm3 Eos # (Auto) (0-0.3) K/mm3 Baso # (Auto) (0.0-0.1) K/mm3 Abs Immat Gran (auto) (0.00-0.031) K/mm3 Absolute Neuts (auto) (1.3-6.7) K/mm3 Absolute Nucleated RBC (0.0-0.012) K/mm3 Nucleated RBC % (0.0-0.2) % PT (11.1-14.7) Seconds INR APTT (22.3-36.8) Seconds Sodium Potassium Chloride Carbon Dioxide Anion Gap BUN Creatinine Estim Creat Clear Calc Estimated GFR > 60 Glucose Cancelled 118 H Calcium Cancelled 8.7 Total Bilirubin Cancelled AST ALT Alkaline Phosphatase Troponin I (0.000-0.034) ng/mL NT-Pro-B Natriuret Pep (19.9-100) pg/mL Total Protein Albumin 02/15/24 02/15/24 02/15/24 Range/Units 15:45 15:45 15:45 WBC (4.5-10.0) K/mm3 RBC (4.6-6.20) M/mm3 Hgb (14.0-18.0) g/dL Hct (42.0-52.0) % MCV (80-100) fl MCH (26-34) pg MCHC (32-36) g/dl RDW (11.5-14.5) % Plt Count (150-375) k/mm3 MPV (7.4-10.4) fl Immature Gran % (Auto) (0-0.5) % Neut % (Auto) (45.5-73.1) % Lymph % (Auto) (18.3-44.2) % [place] % (Auto) (2.6-8.5) % Eos % (Auto) (0-4.4) % Baso % (Auto) (0.2-1.2) % Lymph # (Auto) (0.9-3.2) K/mm3 [place] # (Auto) (0.1-0.6) K/mm3 Eos # (Auto) (0-0.3) K/mm3 Baso # (Auto) (0.0-0.1) K/mm3 Abs Immat Gran (auto) (0.00-0.031) K/mm3 Absolute Neuts (auto) (1.3-6.7) K/mm3 Absolute Nucleated RBC (0.0-0.012) K/mm3 Nucleated RBC % (0.0-0.2) % PT (11.1-14.7) Seconds INR APTT (22.3-36.8) Seconds Sodium Potassium Chloride Carbon Dioxide Anion Gap BUN Creatinine Estim Creat Clear Calc Estimated GFR Glucose Calcium Total Bilirubin 0.8 AST Cancelled 47 ALT Cancelled 32 Alkaline Phosphatase Cancelled Troponin I (0.000-0.034) ng/mL NT-Pro-B Natriuret Pep (19.9-100) pg/mL Total Protein Albumin 02/15/24 02/15/24 02/15/24 Range/Units 15:45 15:45 15:45 WBC (4.5-10.0) K/mm3 RBC (4.6-6.20) M/mm3 Hgb (14.0-18.0) g/dL Hct (42.0-52.0) % MCV (80-100) fl MCH (26-34) pg MCHC (32-36) g/dl RDW (11.5-14.5) % Plt Count (150-375) k/mm3 MPV (7.4-10.4) fl Immature Gran % (Auto) (0-0.5) % Neut % (Auto) (45.5-73.1) % Lymph % (Auto) (18.3-44.2) % [place] % (Auto) (2.6-8.5) % Eos % (Auto) (0-4.4) % Baso % (Auto) (0.2-1.2) % Lymph # (Auto) (0.9-3.2) K/mm3 [place] # (Auto) (0.1-0.6) K/mm3 Eos # (Auto) (0-0.3) K/mm3 Baso # (Auto) (0.0-0.1) K/mm3 Abs Immat Gran (auto) (0.00-0.031) K/mm3 Absolute Neuts (auto) (1.3-6.7) K/mm3 Absolute Nucleated RBC (0.0-0.012) K/mm3 Nucleated RBC % (0.0-0.2) % PT (11.1-14.7) Seconds INR APTT (22.3-36.8) Seconds Sodium Potassium Chloride Carbon Dioxide Anion Gap BUN Creatinine Estim Creat Clear Calc Estimated GFR Glucose Calcium Total Bilirubin AST ALT Alkaline Phosphatase 71 Troponin I 0.466 H* (0.000-0.034) ng/mL NT-Pro-B Natriuret Pep 260 H (19.9-100) pg/mL Total Protein Cancelled 7.0 Albumin Cancelled 4.1 02/15/24 Range/Units 18:37 WBC (4.5-10.0) K/mm3 RBC (4.6-6.20) M/mm3 Hgb (14.0-18.0) g/dL Hct (42.0-52.0) % MCV (80-100) fl MCH (26-34) pg MCHC (32-36) g/dl RDW (11.5-14.5) % Plt Count (150-375) k/mm3 MPV (7.4-10.4) fl Immature Gran % (Auto) (0-0.5) % Neut % (Auto) (45.5-73.1) % Lymph % (Auto) (18.3-44.2) % [place] % (Auto) (2.6-8.5) % Eos % (Auto) (0-4.4) % Baso % (Auto) (0.2-1.2) % Lymph # (Auto) (0.9-3.2) K/mm3 [place] # (Auto) (0.1-0.6) K/mm3 Eos # (Auto) (0-0.3) K/mm3 Baso # (Auto) (0.0-0.1) K/mm3 Abs Immat Gran (auto) (0.00-0.031) K/mm3 Absolute Neuts (auto) (1.3-6.7) K/mm3 Absolute Nucleated RBC (0.0-0.012) K/mm3 Nucleated RBC % (0.0-0.2) % PT (11.1-14.7) Seconds INR APTT (22.3-36.8) Seconds Sodium Potassium Chloride Carbon Dioxide Anion Gap BUN Creatinine Estim Creat Clear Calc Estimated GFR Glucose Calcium Total Bilirubin AST ALT Alkaline Phosphatase Troponin I 0.484 H* (0.000-0.034) ng/mL NT-Pro-B Natriuret Pep (19.9-100) pg/mL Total Protein Albumin <Stephanie Croft PA-C - Last Filed: 02/15/24 15:47> Lab Results 02/15/24 02/15/24 02/15/24 Range/Units 15:45 15:45 15:45 WBC 5.3 (4.5-10.0) K/mm3 RBC 4.50 L (4.6-6.20) M/mm3 Hgb 14.1 (14.0-18.0) g/dL Hct 41.4 L (42.0-52.0) % MCV 92.0 (80-100) fl MCH 31.3 (26-34) pg MCHC 34.1 (32-36) g/dl RDW 12.0 (11.5-14.5) % Plt Count 249 (150-375) k/mm3 MPV 10.3 (7.4-10.4) fl Immature Gran % (Auto) 0.6 H (0-0.5) % Neut % (Auto) 68.9 (45.5-73.1) % Lymph % (Auto) 15.3 L (18.3-44.2) % [place] % (Auto) 9.3 H (2.6-8.5) % Eos % (Auto) 5.5 H (0-4.4) % Baso % (Auto) 0.4 (0.2-1.2) % Lymph # (Auto) 0.81 L (0.9-3.2) K/mm3 [place] # (Auto) 0.5 (0.1-0.6) K/mm3 Eos # (Auto) 0.3 (0-0.3) K/mm3 Baso # (Auto) 0.0 (0.0-0.1) K/mm3 Abs Immat Gran (auto) 0.03 (0.00-0.031) K/mm3 Absolute Neuts (auto) 3.6 (1.3-6.7) K/mm3 Absolute Nucleated RBC 0.000 (0.0-0.012) K/mm3 Nucleated RBC % 0.0 (0.0-0.2) % PT 14.1 (11.1-14.7) Seconds INR 1.1 APTT 38.3 H (22.3-36.8) Seconds Sodium Cancelled 136 L Potassium Cancelled 3.8 Chloride Cancelled Carbon Dioxide Anion Gap BUN Creatinine Estim Creat Clear Calc Estimated GFR Glucose Calcium Total Bilirubin AST ALT Alkaline Phosphatase Troponin I (0.000-0.034) ng/mL NT-Pro-B Natriuret Pep (19.9-100) pg/mL Total Protein Albumin 02/15/24 02/15/24 02/15/24 Range/Units 15:45 15:45 15:45 WBC (4.5-10.0) K/mm3 RBC (4.6-6.20) M/mm3 Hgb (14.0-18.0) g/dL Hct (42.0-52.0) % MCV (80-100) fl MCH (26-34) pg MCHC (32-36) g/dl RDW (11.5-14.5) % Plt Count (150-375) k/mm3 MPV (7.4-10.4) fl Immature Gran % (Auto) (0-0.5) % Neut % (Auto) (45.5-73.1) % Lymph % (Auto) (18.3-44.2) % [place] % (Auto) (2.6-8.5) % Eos % (Auto) (0-4.4) % Baso % (Auto) (0.2-1.2) % Lymph # (Auto) (0.9-3.2) K/mm3 [place] # (Auto) (0.1-0.6) K/mm3 Eos # (Auto) (0-0.3) K/mm3 Baso # (Auto) (0.0-0.1) K/mm3 Abs Immat Gran (auto) (0.00-0.031) K/mm3 Absolute Neuts (auto) (1.3-6.7) K/mm3 Absolute Nucleated RBC (0.0-0.012) K/mm3 Nucleated RBC % (0.0-0.2) % PT (11.1-14.7) Seconds INR APTT (22.3-36.8) Seconds Sodium Potassium Chloride 101 Carbon Dioxide Cancelled 29 Anion Gap Cancelled 6 BUN Cancelled Creatinine Estim Creat Clear Calc Estimated GFR Glucose Calcium Total Bilirubin AST ALT Alkaline Phosphatase Troponin I (0.000-0.034) ng/mL NT-Pro-B Natriuret Pep (19.9-100) pg/mL Total Protein Albumin 02/15/24 02/15/24 02/15/24 Range/Units 15:45 15:45 15:45 WBC (4.5-10.0) K/mm3 RBC (4.6-6.20) M/mm3 Hgb (14.0-18.0) g/dL Hct (42.0-52.0) % MCV (80-100) fl MCH (26-34) pg MCHC (32-36) g/dl RDW (11.5-14.5) % Plt Count (150-375) k/mm3 MPV (7.4-10.4) fl Immature Gran % (Auto) (0-0.5) % Neut % (Auto) (45.5-73.1) % Lymph % (Auto) (18.3-44.2) % [place] % (Auto) (2.6-8.5) % Eos % (Auto) (0-4.4) % Baso % (Auto) (0.2-1.2) % Lymph # (Auto) (0.9-3.2) K/mm3 [place] # (Auto) (0.1-0.6) K/mm3 Eos # (Auto) (0-0.3) K/mm3 Baso # (Auto) (0.0-0.1) K/mm3 Abs Immat Gran (auto) (0.00-0.031) K/mm3 Absolute Neuts (auto) (1.3-6.7) K/mm3 Absolute Nucleated RBC (0.0-0.012) K/mm3 Nucleated RBC % (0.0-0.2) % PT (11.1-14.7) Seconds INR APTT (22.3-36.8) Seconds Sodium Potassium Chloride Carbon Dioxide Anion Gap BUN 12 D Creatinine Cancelled 0.90 Estim Creat Clear Calc Cancelled 101 Estimated GFR Cancelled Glucose Calcium Total Bilirubin AST ALT Alkaline Phosphatase Troponin I (0.000-0.034) ng/mL NT-Pro-B Natriuret Pep (19.9-100) pg/mL Total Protein Albumin 02/15/24 02/15/24 02/15/24 Range/Units 15:45 15:45 15:45 WBC (4.5-10.0) K/mm3 RBC (4.6-6.20) M/mm3 Hgb (14.0-18.0) g/dL Hct (42.0-52.0) % MCV (80-100) fl MCH (26-34) pg MCHC (32-36) g/dl RDW (11.5-14.5) % Plt Count (150-375) k/mm3 MPV (7.4-10.4) fl Immature Gran % (Auto) (0-0.5) % Neut % (Auto) (45.5-73.1) % Lymph % (Auto) (18.3-44.2) % [place] % (Auto) (2.6-8.5) % Eos % (Auto) (0-4.4) % Baso % (Auto) (0.2-1.2) % Lymph # (Auto) (0.9-3.2) K/mm3 [place] # (Auto) (0.1-0.6) K/mm3 Eos # (Auto) (0-0.3) K/mm3 Baso # (Auto) (0.0-0.1) K/mm3 Abs Immat Gran (auto) (0.00-0.031) K/mm3 Absolute Neuts (auto) (1.3-6.7) K/mm3 Absolute Nucleated RBC (0.0-0.012) K/mm3 Nucleated RBC % (0.0-0.2) % PT (11.1-14.7) Seconds INR APTT (22.3-36.8) Seconds Sodium Potassium Chloride Carbon Dioxide Anion Gap BUN Creatinine Estim Creat Clear Calc Estimated GFR > 60 Glucose Cancelled 118 H Calcium Cancelled 8.7 Total Bilirubin Cancelled AST ALT Alkaline Phosphatase Troponin I (0.000-0.034) ng/mL NT-Pro-B Natriuret Pep (19.9-100) pg/mL Total Protein Albumin 02/15/24 02/15/24 02/15/24 Range/Units 15:45 15:45 15:45 WBC (4.5-10.0) K/mm3 RBC (4.6-6.20) M/mm3 Hgb (14.0-18.0) g/dL Hct (42.0-52.0) % MCV (80-100) fl MCH (26-34) pg MCHC (32-36) g/dl RDW (11.5-14.5) % Plt Count (150-375) k/mm3 MPV (7.4-10.4) fl Immature Gran % (Auto) (0-0.5) % Neut % (Auto) (45.5-73.1) % Lymph % (Auto) (18.3-44.2) % [place] % (Auto) (2.6-8.5) % Eos % (Auto) (0-4.4) % Baso % (Auto) (0.2-1.2) % Lymph # (Auto) (0.9-3.2) K/mm3 [place] # (Auto) (0.1-0.6) K/mm3 Eos # (Auto) (0-0.3) K/mm3 Baso # (Auto) (0.0-0.1) K/mm3 Abs Immat Gran (auto) (0.00-0.031) K/mm3 Absolute Neuts (auto) (1.3-6.7) K/mm3 Absolute Nucleated RBC (0.0-0.012) K/mm3 Nucleated RBC % (0.0-0.2) % PT (11.1-14.7) Seconds INR APTT (22.3-36.8) Seconds Sodium Potassium Chloride Carbon Dioxide Anion Gap BUN Creatinine Estim Creat Clear Calc Estimated GFR Glucose Calcium Total Bilirubin 0.8 AST Cancelled 47 ALT Cancelled 32 Alkaline Phosphatase Cancelled Troponin I (0.000-0.034) ng/mL NT-Pro-B Natriuret Pep (19.9-100) pg/mL Total Protein Albumin 02/15/24 02/15/24 02/15/24 Range/Units 15:45 15:45 15:45 WBC (4.5-10.0) K/mm3 RBC (4.6-6.20) M/mm3 Hgb (14.0-18.0) g/dL Hct (42.0-52.0) % MCV (80-100) fl MCH (26-34) pg MCHC (32-36) g/dl RDW (11.5-14.5) % Plt Count (150-375) k/mm3 MPV (7.4-10.4) fl Immature Gran % (Auto) (0-0.5) % Neut % (Auto) (45.5-73.1) % Lymph % (Auto) (18.3-44.2) % [place] % (Auto) (2.6-8.5) % Eos % (Auto) (0-4.4) % Baso % (Auto) (0.2-1.2) % Lymph # (Auto) (0.9-3.2) K/mm3 [place] # (Auto) (0.1-0.6) K/mm3 Eos # (Auto) (0-0.3) K/mm3 Baso # (Auto) (0.0-0.1) K/mm3 Abs Immat Gran (auto) (0.00-0.031) K/mm3 Absolute Neuts (auto) (1.3-6.7) K/mm3 Absolute Nucleated RBC (0.0-0.012) K/mm3 Nucleated RBC % (0.0-0.2) % PT (11.1-14.7) Seconds INR APTT (22.3-36.8) Seconds Sodium Potassium Chloride Carbon Dioxide Anion Gap BUN Creatinine Estim Creat Clear Calc Estimated GFR Glucose Calcium Total Bilirubin AST ALT Alkaline Phosphatase 71 Troponin I 0.466 H* (0.000-0.034) ng/mL NT-Pro-B Natriuret Pep 260 H (19.9-100) pg/mL Total Protein Cancelled 7.0 Albumin Cancelled 4.1 02/15/24 Range/Units 18:37 WBC (4.5-10.0) K/mm3 RBC (4.6-6.20) M/mm3 Hgb (14.0-18.0) g/dL Hct (42.0-52.0) % MCV (80-100) fl MCH (26-34) pg MCHC (32-36) g/dl RDW (11.5-14.5) % Plt Count (150-375) k/mm3 MPV (7.4-10.4) fl Immature Gran % (Auto) (0-0.5) % Neut % (Auto) (45.5-73.1) % Lymph % (Auto) (18.3-44.2) % [place] % (Auto) (2.6-8.5) % Eos % (Auto) (0-4.4) % Baso % (Auto) (0.2-1.2) % Lymph # (Auto) (0.9-3.2) K/mm3 [place] # (Auto) (0.1-0.6) K/mm3 Eos # (Auto) (0-0.3) K/mm3 Baso # (Auto) (0.0-0.1) K/mm3 Abs Immat Gran (auto) (0.00-0.031) K/mm3 Absolute Neuts (auto) (1.3-6.7) K/mm3 Absolute Nucleated RBC (0.0-0.012) K/mm3 Nucleated RBC % (0.0-0.2) % PT (11.1-14.7) Seconds INR APTT (22.3-36.8) Seconds Sodium Potassium Chloride Carbon Dioxide Anion Gap BUN Creatinine Estim Creat Clear Calc Estimated GFR Glucose Calcium Total Bilirubin AST ALT Alkaline Phosphatase Troponin I 0.484 H* (0.000-0.034) ng/mL NT-Pro-B Natriuret Pep (19.9-100) pg/mL Total Protein Albumin <Yenni Taylor MD - Last Filed: 02/15/24 21:27> Imaging Data Radiologist's impression: ITS Impressions Venous Doppler Study 02/15/24 14:14 IMPRESSION: Deep vein thrombosis. Chest CTA 02/15/24 16:20 IMPRESSION: No CT evidence of acute pulmonary embolus. No acute process detected in the chest. <Yenni Taylor MD - Last Filed: 02/15/24 21:27> Critical Care Time Critical Care Time Critical Care Time: Yes <Yenni Taylor MD - Last Filed: 02/15/24 21:27> Total Critical Care Time: 33 <Yenni Taylor MD - Last Filed: 02/15/24 21:27> Discharge Plan Discharge Clinical Impression: Exertional dyspnea, DVT (deep venous thrombosis), Elevated troponin <Stephanie Croft PA-C - Last Filed: 02/15/24 15:47> Patient Disposition: Still a Patient <Stephanie Croft PA-C - Last Filed: 02/15/24 15:47> Condition: Stable <Stephanie Croft PA-C - Last Filed: 02/15/24 15:47> Prescriptions: No Action No Home Medications <Stephanie Croft PA-C - Last Filed: 02/15/24 15:47> Follow-up/Referrals: Markos Woodard, DO [Primary Care Provider] - <Stephanie Croft PA-C - Last Filed: 02/15/24 15:47>
[2024-02-15 16:13] LABS: Basophils Percent Auto 0.4 % (0.2-1.2); Eosinophils Absolute Auto 0.3 K/mm3 (0-0.3); Eosinophils Percent Auto 5.5 % (0-4.4); Hematocrit 41.4 % (42.0-52.0); Hemoglobin 14.1 g/dL (14.0-18.0); Immature Granulocyte Absolute 0.03 K/mm3 (0.00-0.031); Immature Granulocyte Percent A 0.6 % (0-0.5); Lymphocytes Absolute Auto 0.81 K/mm3 (0.9-3.2); Lymphocytes Percent Auto 15.3 % (18.3-44.2); Mean Corpuscular HGB Conc 34.1 g/dl (32-36); Mean Corpuscular Hemoglobin 31.3 pg (26-34); Mean Platelet Volume 10.3 fl (7.4-10.4); Monocytes Absolute Auto 0.5 K/mm3 (0.1-0.6); Monocytes Percent Auto 9.3 % (2.6-8.5); Neutrophils Absolute Auto 3.6 K/mm3 (1.3-6.7); Neutrophils Percent Auto 68.9 % (45.5-73.1); Platelet Count Result 249 k/mm3 (150-375); White Blood Count 5.3 K/mm3 (4.5-10.0)
[2024-02-15 16:25] LABS: INR 1.1; Partial Thromboplastin Time 38.3 Seconds (22.3-36.8); Prothrombin Time 14.1 Seconds (11.1-14.7)
[2024-02-15 16:28] LABS: Alanine Aminotransferase 32 U/L (6-50); Albumin Level 4.1 g/dL (3.5-5.1); Alkaline Phosphatase 71 U/L (38-126); Anion Gap 6 mmol/L (4-12); Aspartate Amino Transferase 47 U/L (17-59); Bilirubin,Total 0.8 mg/dL (0.2-1.3); Blood Urea Nitrogen 12 mg/dL (9-20); Calcium 8.7 mg/dL (8.4-10.2); Carbon Dioxide 29 mmol/L (22-30); Chloride 101 mmol/L (98-107); Estimated CRCL calculation 101 ml/min; Estimated Glomerular Filt Rate > 60; Glucose 118 mg/dL (65-110); Potassium 3.8 mmol/L (3.4-5.0); Sodium 136 mmol/L (137-145)
[2024-02-15 16:41] LABS: NT Pro B Type Natriuretic Pept 260 pg/mL (19.9-100); Troponin I 0.466 ng/mL (0.000-0.034)
--- NOTE | 2024-02-15 16:43 | ECG_ITS ---
Test Date: 2024-02-15 16:55:00 Measurements Intervals [place] Rate: 64 P: 38 [place]: 208 QRS: -54 QRSD: 109 T: 21 QT: 395 QTc: 409 Interpretive Statements SINUS RHYTHM WITH FIRST DEGREE AV BLOCK INCOMPLETE RIGHT BUNDLE BRANCH BLOCK LEFT ANTERIOR FASCICULAR BLOCK BASELINE ARTIFACT- I, III, AVR, AVL, AVF, V2 ABNORMAL ECG No previous ECG available for comparison Electronically Signed On 02-15-2024 19:10:54 [employer] by Marcos Romo D.O.
[2024-02-15 17:34] VITALS: BP 133/78; PULSE 61; RESP 16; TEMP 36.8; O2SAT 98
[2024-02-15] MEDS: ASPIRIN 81 MG CHEWABLE TABLET 324 MG PO (18:26)
--- NOTE | 2024-02-15 18:32 | ECG_ITS ---
Test Date: 2024-02-15 18:39:31 Measurements Intervals [place] Rate: 61 P: 41 [place]: 207 QRS: -48 QRSD: 109 T: 34 QT: 395 QTc: 398 Interpretive Statements SINUS RHYTHM WITH FIRST DEGREE AV BLOCK INCOMPLETE RIGHT BUNDLE BRANCH BLOCK LEFT ANTERIOR FASCICULAR BLOCK BASELINE ARTIFACT- I, II, III, AVR, AVL, AVF, V1 ABNORMAL ECG Compared to ECG 02/15/2024 16:55:00 NO SIGNIFICANT CHANGE Electronically Signed On 02-15-2024 19:07:13 PATIENT REGISTRATION SPECIALIST by Marcos Romo D.O.
[2024-02-15] MEDS: HEPARIN SODIUM 5,000 UNITS/ML VIAL 7500 UNITS IV PUSH (18:39)
[2024-02-15] MEDS: HEPARIN SOD/D5W 100 UNITS/ML 25,000 UNITS/250 ML BAG 15 UNITS IV CONT (18:40)
[2024-02-15 19:00] VITALS: BP 139/87; PULSE 61; RESP 22; TEMP 36.6; O2SAT 97
[2024-02-15 19:12] LABS: Troponin I 0.484 ng/mL (0.000-0.034)
[2024-02-15 20:46] VITALS: BP 133/64; PULSE 63; RESP 20; TEMP 36.6; O2SAT 96
--- NOTE | 2024-02-15 21:30 | P.HP_ITS ---
H&P: HPI History of Present Illness Date/Time: 02/15/24 19:45 Chief Complaint: Right leg pain and swelling. Narrative: This is a very pleasant 63-year-old male with history of right lower extremity DVT several years attributed to extended period of time in a saddle float while at the [place] for presented to the emergency department for evaluation of swelling. He still gets occasional mild swelling in his right leg but last week he noticed that his right thigh was more swollen than usual. Over the course of the next few days it became painful and he reports feeling a hard lump on the upper inner thigh. reports that he seems to be getting winded with everyday activity however the patient is not aware of that. He endorses intermittent nausea over the last 3 days but is otherwise feeling okay. He denies syncope, near syncope, chest pain, pleuritic pain, palpitations, shortness of breath, orthopnea, paroxysmal nocturnal dyspnea, vomiting, and sweats. He also denies recent travel and sedentary lifestyle. No history of malignancy. Weight has remained stable. In the ED: Vital signs were stable on arrival. Labs were significant for a WBC count of 5.3, hemoglobin 14.1, INR 1.1, glucose 118, proBNP 260, troponin 0.466. Lower extremity venous Doppler ultrasound showed a DVT in the right popliteal vein. Chest CTA showed no evidence of acute pulmonary embolus or acute process. EKG showed sinus rhythm with first-degree AV block, incomplete right bundle- branch block, left anterior fascicular block, and no acute ST segment deviations. He was started on a heparin drip and is being admitted in this setting for further treatment and Cardiology consultation. Review of Systems Review of Systems: 12 systems were reviewed and are negativ e except for as per HPI. [facility] Past Medical History Medical History (Updated 02/15/24 @ 23:21 by Cecy Graves PA-C) Deep vein thrombosis of right lower extremity 11/06/2020 02/15/2024 Surgical History Surgical History (Updated 02/15/24 @ 23:19 by Cecy Graves PA-C) History of tonsillectomy Status post excision of lipoma (07/30/22) left posterolateral back, 5 x 4 x 2 cm Family History Family History Mother Hypertension Cancer Grandparent Cancer Other Cancer Social History Social History (Updated 02/15/24 @ 23:19 by Cecy Graves PA-C) Social History: Surrogate medical decision maker: Lena Lamar, significant other. Code status: Full code. Smoking packs per day: 1 Smoking cigarettes per day: 20.0 Years smoked: 10 Smoking pack-years: 10.00 Smoking status: Former smoker Tobacco type: cigarettes Smoking end date: 03/23/02 Alcohol intake: current Drinks per week: 14 Alcohol use details: social Substance use: never Substance use type: does not use Do You Feel Safe in your Home?: Yes Lack of Transportation: No Lack of Food: Never True Current Housing: Decline to Answer Concerned About Future Housing: Decline to Answer Difficulty Paying Gas/Electric Bills: Decline to Answer Difficulty Paying for Meds: Decline to Answer Currently Unemployed: Decline to Answer Education: Decline to Answer Difficulty w/ Childcare or Family Care: Decline to Answer Living arrangements: with family Occupation/Education: occupation 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 Spiritual care concerns: No Agree to blood products: Yes Meds Home Medications and Allergies Home Medications Medication Instructions Recorded Confirmed Type No Home Medications 02/15/24 02/15/24 History Allergies Allergy/AdvReac Type Severity Reaction Status Date / Time No Known Allergies Allergy Unknown Verified 02/15/24 13:31 Vital Signs Vital Signs - 24 hr 02/15/24 13:49 02/15/24 17:34 02/15/24 19:00 Temperature 98.2 F 98.3 F 97.9 F Pulse Rate 69 61 61 Respiratory Rate 16 16 22 H Blood Pressure 144/68 H 133/78 139/87 Pulse Oximetry 98 98 97 02/15/24 20:46 Temperature 97.8 F Pulse Rate 63 Respiratory Rate 20 Blood Pressure 133/64 Pulse Oximetry 96 Exam Narrative: General: Well-developed, nontoxic-appearing male sitting up in bed no acute distress. Weight: 115 kg. BMI: 33.4. HEENT: PERRL, EOMI. Sclera anicteric. Oral mucosa moist. Oropharynx clear. Neck: Supple. Respiratory: Lungs are clear to auscultation bilaterally. Cardiovascular: Regular rate and rhythm with S1-S2. Gastrointestinal: Abdomen is soft, nontender, and nondistended with positive bowel sounds. No organomegaly. Skin: Warm and dry. No rash or lesions on limited exam. Extremities: No cyanosis or clubbing. There is some mild swelling of the right lower leg. The right thigh is more swollen compared to the left a firm knot in the upper medial thigh and mild erythema. Neurological: Alert. Cranial nerves 2-12 are grossly intact. No gross focal deficits to casual conversation. Psychiatric: Pleasant and cooperative with normal mood and affect. Judgment and insight intact. H&P: Results Labs Labs: Short CBC 02/15/24 Range/Units 15:45 WBC 5.3 (4.5-10.0) K/mm3 Hgb 14.1 (14.0-18.0) g/dL Hct 41.4 L (42.0-52.0) % Plt Count 249 (150-375) k/mm3 BMP 02/15/24 02/15/24 02/15/24 15:45 15:45 15:45 Sodium Cancelled 136 L Potassium Cancelled 3.8 Chloride Cancelled Carbon Dioxide BUN Creatinine Glucose Calcium 02/15/24 02/15/24 02/15/24 15:45 15:45 15:45 Sodium Potassium Chloride 101 Carbon Dioxide Cancelled 29 BUN Cancelled 12 D Creatinine Cancelled Glucose Calcium 02/15/24 02/15/24 02/15/24 15:45 15:45 15:45 Sodium Potassium Chloride Carbon Dioxide BUN Creatinine 0.90 Glucose Cancelled 118 H Calcium Cancelled 8.7 Cardiac Enzymes 02/15/24 02/15/24 Range/Units 15:45 18:37 Troponin I 0.466 H* 0.484 H* (0.000-0.034) ng/mL Liver Function 02/15/24 02/15/24 02/15/24 Range/Units 15:45 15:45 15:45 Total Bilirubin Cancelled 0.8 AST Cancelled 47 ALT Cancelled Alkaline Phosphatase Albumin 02/15/24 02/15/24 02/15/24 Range/Units 15:45 15:45 15:45 Total Bilirubin AST ALT 32 Alkaline Phosphatase Cancelled 71 Albumin Cancelled 4.1 Impressions Venous Doppler Study 02/15/24 14:14 IMPRESSION: Deep vein thrombosis. Chest CTA 02/15/24 16:20 IMPRESSION: No CT evidence of acute pulmonary embolus. No acute process detected in the chest. Assessment and Plan Assessment and plan (1) Elevated troponin: Code(s): R79.89 - Other specified abnormal findings of blood chemistry Status: Acute (2) Deep vein thrombosis of right lower extremity: Code(s): I82.401 - Acute embolism and thrombosis of unspecified deep veins of right lower extremity Status: Acute Plan The patient presented to the emergency department for evaluation of right leg swelling as detailed in HPI. Labs, imaging, EKG, and all reports were personally reviewed. Venous Doppler ultrasound showed a DVT in the right popliteal vein although his symptoms are mostly in the right upper thigh. Chest CTA was performed due to concerns for possible upper thigh embolism mobilization however chest CTA was negative for PE. Incidentally his proBNP was slightly elevated as well as his troponin. He has not had any chest pain whatsoever. He received aspirin 325 mg and has been started on a heparin drip. He will be monitored in IMU overnight and cardiology has been consulted. Etiology of the recurrent DVTs not entirely clear but he will likely need to be on lifelong anticoagulation and this was discussed with him. He gives no history to suggest underlying malignancy. Vital signs were reviewed and are stable. His home medications will be reviewed and resumed as appropriate. Findings and treatment plan were discussed with the patient. Questions were solicited and answered to satisfaction. The patient's medical management will be taken over by the hospitalist team in a.m. Quality VTE Prophylaxis VTE prophylaxis: pharmacologic ordered (on a heparin drip) The patient has been admitted under observation status. Hospitalist [facility] Advance Care Plan I have confirmed that the patient's Advanced Care Plan is present, code status is documented, or surrogate decision maker is listed in patient medical record.: Yes Medication Reconciliation I have utilized all available resources to obtain, update and review the patients current medications (includes all prescriptions, OTC, herbals, cannabis, and nutritional supplements).: Yes
--- NOTE | 2024-02-15 21:52 | ECG_ITS ---
Test Date: 2024-02-15 21:59:37 Measurements Intervals [place] Rate: 59 P: 42 [place]: 207 QRS: -47 QRSD: 112 T: 23 QT: 413 QTc: 411 Interpretive Statements SINUS BRADYCARDIA WITH FIRST DEGREE AV BLOCK INCOMPLETE RIGHT BUNDLE BRANCH BLOCK LEFT ANTERIOR FASCICULAR BLOCK ABNORMAL ECG Compared to ECG 02/15/2024 18:39:31 NO SIGNIFICANT CHANGE Electronically Signed On 02-16-2024 06:02:48 [facility] by Marcos Romo D.O.
[2024-02-15 22:47] LABS: Troponin I 0.558 ng/mL (0.000-0.034)
[2024-02-15 23:06] VITALS: BP 122/72; PULSE 64; RESP 17; O2SAT 98
--- NOTE | 2024-02-15 23:06 | PC.NURSE ---
Assumed care of pt from Dariana JACKSON at this time.
[2024-02-15 23:11] VITALS: BMI 33.4
[2024-02-15 23:25] VITALS: BP 122/72; PULSE 67; RESP 14; TEMP 36.9; O2SAT 99
[2024-02-16] VITALS (26 sets, daily range): BP systolic 115–141; BP diastolic 54–78; PULSE 57–74; RESP 14–20; TEMP 36.2–36.9; O2SAT 92–99
--- NOTE | 2024-02-16 | ECHO_ITS ---
Patient Info Name: Lebron Han Age: 63 years : 1960 Gender: Male Ht: 73 in Wt: 250 lbs BSA: 2.45 m2 HR: 63 bpm BP: 139 / 54 mmHg Heart Rhythm: Sinus Rhythm Technical Quality: Good Exam Date: 02/16/2024 11:22 AM Exam Location: Echo Lab Patient Status: Inpatient Admit Date: 02/15/2024 Staff Ordering Physician: Marcos Romo DO Roving Hand: Tarun Jaeger RDCS Attending Provider: Scott Millard MD Referring Physician: Demetrius FARIA; Exam Type: CA echo doppler color flow Study Info Indications - JEWELL Complete two-dimensional, color flow and Doppler transthoracic echocardiogram is performed. Summary 1. Complete two-dimensional, color flow and Doppler transthoracic echocardiogram is performed. 2. Left ventricular chamber dimension is normal. 3. Left ventricular systolic function is normal, estimated at 65-70%. 4. The left ventricular diastolic function is grade I diastolic dysfunction. 5. E/e' 12 is mildly elevated. 6. Left atrial chamber dimension is mildly enlarged. 7. There is trace tricuspid valve regurgitation. 8. No pulmonary hypertension, estimated pulmonary arterial systolic pressure is 12 mmHg. Left Ventricle E/e' 12 is mildly elevated. Left ventricular chamber dimension is normal. Left ventricular systolic function is normal, estimated at 65-70%. The left ventricular diastolic function is grade I diastolic dysfunction. Right Ventricle Right ventricular systolic function is normal and with normal TAPSE 3.2 cm. Right ventricular chamber dimension is normal. Left Atria Left atrial chamber dimension is mildly enlarged. Right Atria Right atrial chamber dimension is normal. Aortic Valve The aortic valve is trileaflet. There is no aortic valve stenosis. There is no aortic valve regurgitation. Pulmonic Valve There is no pulmonic regurgitation. Mitral Valve There is no mitral valve stenosis. There is no mitral valve regurgitation. Tricuspid Valve There is trace tricuspid valve regurgitation. No pulmonary hypertension, estimated pulmonary arterial systolic pressure is 12 mmHg. Pericardium/Pleural There is no pericardial effusion. Inferior Vena Cava Normal inferior vena cava with >50% collapse upon inspiration consistent with normal right atrial pressure, 5 mmHg. Aorta The aortic root size at the sinus of Valsalva is normal. Left Ventricular Outflow Tract Name Value Normal LVOT 2D LVOT Diameter 2.1 cm LVOT Doppler LVOT Peak Gradient 5 mmHg LVOT Mean Gradient 3 mmHg LVOT VTI 25 cm LVOT VTI/AV VTI Ratio 0.8 LVOT Stroke Volume 87 ml LVOT CO 4.7 l/min LVOT CI 1.9 l/min/m2 Mitral Valve Name Value Normal MV Doppler MV Decel [place] 316 cm/s2 MV PHT 75 ms MV Area (PHT) 2.9 cm2 4.0-5.0 MV Diastolic Function MV E Peak Velocity 82 cm/s MV A Peak Velocity 90 cm/s MV E/A 0.9 MV Decel Time 259 ms MV Annular TDI MV E/e' (Septal) 13.1 <=8.0 MV E/e' (Lateral) 11.9 <=8.0 MV E/e' (Average) 12.5 Tricuspid Valve Name Value Normal TV Regurgitation Doppler TR Peak Velocity 128 cm/s TR Peak Gradient 7 mmHg Estimated PAP/RSVP RA Pressure 5 mmHg <=5 PA Systolic Pressure 12 mmHg <36 RV Systolic Pressure 12 mmHg <36 Aortic Valve Name Value Normal AV Doppler AV Peak Velocity 129 cm/s AV Peak Gradient 5 mmHg AV Mean Gradient 3 mmHg AV VTI 31 cm AV Area (Cont Eq VTI) 2.8 cm2 >=3.0 AV Area (Cont Eq Neville) 3.2 cm2 AV Regurgitation 2D LVOT Area 3.4 cm2 Ventricles Name Value Normal LV Dimensions 2D/MM IVS Diastolic Thickness (2D) 1.1 cm 0.6-1.0 LVID Diastole (2D) 5.3 cm 4.2-5.8 LVIW Diastolic Thickness (2D) 1.1 cm 0.6-1.0 LVID Systole (2D) 3.4 cm 2.5-4.0 LVOT Diameter 2.1 cm LV Mass (2D Cubed) 231.22 g 88.00-224.00 LV Mass Index (2D Cubed) 94 g/m2 49-115 Relative Wall Thickness (2D) 0.41 LV Fractional Shortening/Ejection Fraction 2D/MM LV Fractional Shortening (2D) 35 % 25-43 LV EF (2D Teicholz) 64 % 52-72 LV Diastolic Volume (4C MOD) 155 ml LV EF (4C MOD) 64 % LV Diastolic Volume (2C MOD) 100 ml LV EF (2C MOD) 61 % LV Diastolic Volume (BP MOD) 127 ml 62-150 LV Diastolic Volume Index (BP MOD) 52 ml/m2 34-74 LV Systolic Volume (BP MOD) 47 ml 21-61 LV Systolic Volume Index (BP MOD) 19 ml/m2 11-31 LV EF (BP MOD) 63 % 52-72 LV Diastolic Length (4C) 9.0 cm LV Systolic Length (4C) 7.2 cm LV Stroke Volume (4C MOD) 99 ml Atria Name Value Normal LA Dimensions LA Volume (4C A-L) 64 ml LA Volume (BP A-L) 56 ml RA Dimensions RA Area (4C) 15.3 cm2 <=18.0 Report Signatures
--- NOTE | 2024-02-16 | ADMGEN ---
This patient, Lebron Han, was admitted to IMU Room 206-02. Patient/family oriented to hospital policies and general routines including ID bracelet, bed and alarms, visiting hours, pain management, procedures, bathroom and other care routines, personal items, smoking policy, room service/diet, and visiting hours. Information on how to activate the Rapid Response Team has been discussed. Patient/Family are encouraged to report perceived risks to care and to ask questions if they do not understand what they are told or what they should do.
[2024-02-16 01:00] LABS: Partial Thromboplastin Time 99.5 Seconds (22.3-36.8)
[2024-02-16 07:09] LABS: Eosinophils Absolute Auto 0.3 K/mm3 (0-0.3); Eosinophils Percent Auto 7.7 % (0-4.4); Hematocrit 40.5 % (42.0-52.0); Hemoglobin 14.2 g/dL (14.0-18.0); Immature Granulocyte Absolute 0.03 K/mm3 (0.00-0.031); Immature Granulocyte Percent A 0.7 % (0-0.5); Lymphocytes Percent Auto 15.8 % (18.3-44.2); Mean Corpuscular HGB Conc 35.1 g/dl (32-36); Mean Corpuscular Hemoglobin 32.1 pg (26-34); Mean Corpuscular Volume 91.6 fl (80-100); Mean Platelet Volume 10.3 fl (7.4-10.4); Monocytes Absolute Auto 0.4 K/mm3 (0.1-0.6); Monocytes Percent Auto 9.3 % (2.6-8.5); Neutrophils Absolute Auto 2.9 K/mm3 (1.3-6.7); Neutrophils Percent Auto 66.5 % (45.5-73.1); Platelet Count Result 232 k/mm3 (150-375); Red Blood Count 4.42 M/mm3 (4.6-6.20); White Blood Count 4.4 K/mm3 (4.5-10.0)
[2024-02-16 07:18] LABS: Anion Gap 2 mmol/L (4-12); Blood Urea Nitrogen 10 mg/dL (9-20); Calcium 8.4 mg/dL (8.4-10.2); Carbon Dioxide 30 mmol/L (22-30); Chloride 102 mmol/L (98-107); Estimated CRCL calculation 101 ml/min; Estimated Glomerular Filt Rate > 60; Glucose 115 mg/dL (65-110); Partial Thromboplastin Time 79.2 Seconds (22.3-36.8); Sodium 134 mmol/L (137-145)
--- NOTE | 2024-02-16 08:08 | PM.CNCAR ---
Assessment and Plan Assessment and plan (1) Deep vein thrombosis of right lower extremity: Code(s): I82.401 - Acute embolism and thrombosis of unspecified deep veins of right lower extremity Status: Acute Assessment and Plan: DVT of popliteal artery. CTA chest negative for PE. On heparin drip. (2) Exertional dyspnea: Code(s): R06.09 - Other forms of dyspnea Status: Acute Assessment and Plan: Obtain lexiscan myoview stress test. (3) Elevated troponin: Code(s): R79.89 - Other specified abnormal findings of blood chemistry Status: Acute Assessment and Plan: Trending up and moderately elevated at 0.558. Obtain echo. History of Present Illness History of Present Illness Consult date/time: 02/16/24 08:08 Reason For Visit: Elevated troponin, DVT Narrative: 63 yr old man presents to ER with right leg swelling. He has a history of right leg DVT several years ago. Reports for last 1 week he noted pain and swelling of right thigh. He can walk a mile without any problems. Denies chest pain, sob, orthopnea, PND, dizziness, palpitations. Review of Systems Review of Systems: All systems reviewed & are unremarkable except as noted in HPI and below Constitutional: Constitutional: Reports as per HPI, Denies chills, Reports fatigue and Denies fever(s) Cardiovascular: Cardiovascular: Reports as per HPI and Denies chest pain Respiratory: Respiratory: Reports as per HPI and Denies dyspnea Gastrointestinal: Gastrointestinal: Reports as per HPI and Denies abdominal pain Genitourinary: Genitourinary: Reports as per HPI and Denies dysuria Musculoskeletal: Musculoskeletal: Reports as per HPI Neurologic: Reports as per HPI, Denies dizziness and Denies syncope [facility] Past Medical History Medical History (Updated 02/15/24 @ 23:21 by Cecy Graves PA-C) Deep vein thrombosis of right lower extremity 11/06/2020 02/15/2024 Surgical History Surgical History (Updated 02/15/24 @ 23:19 by Cecy Graves PA-C) History of tonsillectomy Status post excision of lipoma (07/30/22) left posterolateral back, 5 x 4 x 2 cm Family History Family History Mother Hypertension Cancer Grandparent Cancer Other Cancer Social History Social History (Updated 02/15/24 @ 23:19 by Cecy Graves PA-C) Social History: Surrogate medical decision maker: Lena Lamar, significant other. Code status: Full code. Smoking packs per day: 1 Smoking cigarettes per day: 20.0 Years smoked: 10 Smoking pack-years: 10.00 Smoking status: Former smoker Tobacco type: cigarettes Smoking end date: 03/23/02 Alcohol intake: current Drinks per week: 14 Alcohol use details: social Substance use: never Substance use type: does not use Do You Feel Safe in your Home?: Yes Lack of Transportation: No Lack of Food: Never True Current Housing: Decline to Answer Concerned About Future Housing: Decline to Answer Difficulty Paying Gas/Electric Bills: Decline to Answer Difficulty Paying for Meds: Decline to Answer Currently Unemployed: Decline to Answer Education: Decline to Answer Difficulty w/ Childcare or Family Care: Decline to Answer Living arrangements: with family Occupation/Education: occupation Additional occupation/education comments: [employer] Spiritual care concerns: No Agree to blood products: Yes Meds Home Medications and Allergies Home Medications Medication Instructions Recorded Confirmed Type No Home Medications 02/15/24 02/15/24 History Allergies Allergy/AdvReac Type Severity Reaction Status Date / Time No Known Allergies Allergy Unknown Verified 02/15/24 13:31 Vital Signs Vital Signs - 24 hr 02/15/24 13:49 02/15/24 17:34 02/15/24 19:00 Temperature 98.2 F 98.3 F 97.9 F Pulse Rate 69 61 61 Respiratory Rate 16 16 22 H Blood Pressure 144/68 H 133/78 139/87 Pulse Oximetry 98 98 97 Oxygen Delivery 02/15/24 20:46 02/15/24 23:06 02/15/24 23:25 Temperature 97.8 F 98.4 F Pulse Rate 63 64 67 Respiratory Rate 20 17 14 Blood Pressure 133/64 122/72 122/72 Pulse Oximetry 96 98 99 Oxygen Delivery 02/16/24 00:34 02/16/24 00:10 02/16/24 00:00 Temperature 98.4 F Pulse Rate 64 67 70 Respiratory Rate 14 14 Blood Pressure 133/62 Pulse Oximetry 96 99 Oxygen Delivery Room Air 02/16/24 02:00 02/16/24 03:45 02/16/24 04:00 Temperature Pulse Rate 62 62 61 Respiratory Rate 14 Blood Pressure Pulse Oximetry 96 Oxygen Delivery Room Air 02/16/24 04:58 02/16/24 05:58 02/16/24 07:38 Temperature 98.2 F 97.6 F Pulse Rate 58 L 62 63 Respiratory Rate 14 20 Blood Pressure 139/54 L 115/57 L Pulse Oximetry 95 96 Oxygen Delivery Exam Const: General: cooperative, healthy appearing and comfortable Resp: Auscultation: clear to auscultation bilaterally, no crackles, no rales, no rhonchi and no wheezes Cardio: Rate: regular rate Rhythm: regular rhythm Heart sounds: no murmurs Peripheral pulses: dorsalis pedis present GI: GI Palp: No abdominal tenderness and Yes Soft to palpation Neuro: General: oriented to person, oriented to place and oriented to time Extrem: Right lower extremity: no edema Left lower extremity: no edema Results Labs and Meds 02/16/24 06:51 02/16/24 06:51 Lab results: Cardiac Enzymes 02/15/24 02/15/24 02/15/24 Range/Units 15:45 15:45 18:37 AST Cancelled 47 Troponin I 0.466 H* 0.484 H* (0.000-0.034) ng/mL 02/15/24 Range/Units 22:05 AST Troponin I 0.558 H* (0.000-0.034) ng/mL Coagulation 02/15/24 02/16/24 02/16/24 Range/Units 15:45 00:36 06:51 PT 14.1 (11.1-14.7) Seconds APTT 38.3 H 99.5 H 79.2 H (22.3-36.8) Seconds CBC 02/15/24 02/16/24 Range/Units 15:45 06:51 WBC 5.3 4.4 L (4.5-10.0) K/mm3 RBC 4.50 L 4.42 L (4.6-6.20) M/mm3 Hgb 14.1 14.2 (14.0-18.0) g/dL Hct 41.4 L 40.5 L (42.0-52.0) % Plt Count 249 232 (150-375) k/mm3 Lymph # (Auto) 0.81 L 0.70 L (0.9-3.2) K/mm3 [place] # (Auto) 0.5 0.4 (0.1-0.6) K/mm3 Eos # (Auto) 0.3 0.3 (0-0.3) K/mm3 Baso # (Auto) 0.0 0.0 (0.0-0.1) K/mm3 Comprehensive Metabolic Panel 02/15/24 02/15/24 02/15/24 Range/Units 15:45 15:45 15:45 Sodium Cancelled 136 L Potassium Cancelled 3.8 Chloride Cancelled Carbon Dioxide BUN Creatinine Glucose Calcium AST ALT Alkaline Phosphatase Total Protein Albumin 02/15/24 02/15/24 02/15/24 Range/Units 15:45 15:45 15:45 Sodium Potassium Chloride 101 Carbon Dioxide Cancelled 29 BUN Cancelled 12 D Creatinine Cancelled Glucose Calcium AST ALT Alkaline Phosphatase Total Protein Albumin 02/15/24 02/15/24 02/15/24 Range/Units 15:45 15:45 15:45 Sodium Potassium Chloride Carbon Dioxide BUN Creatinine 0.90 Glucose Cancelled 118 H Calcium Cancelled 8.7 AST Cancelled ALT Alkaline Phosphatase Total Protein Albumin 02/15/24 02/15/24 02/15/24 Range/Units 15:45 15:45 15:45 Sodium Potassium Chloride Carbon Dioxide BUN Creatinine Glucose Calcium AST 47 ALT Cancelled 32 Alkaline Phosphatase Cancelled 71 Total Protein Cancelled Albumin 02/15/24 02/15/24 02/16/24 Range/Units 15:45 15:45 06:51 Sodium 134 L Potassium 4.0 Chloride 102 Carbon Dioxide 30 BUN 10 Creatinine 0.90 Glucose 115 H Calcium 8.4 AST ALT Alkaline Phosphatase Total Protein 7.0 Albumin Cancelled 4.1 Intake and Output 02/15/24 02/16/24 02/16/24 23:59 07:59 15:59 Intake Total 190.5 Balance 190.5 Intake: IV 190.5 Heparin Sod/D5w 100 Units/ml 25 190.5 ,000 units In 250 ml @ 1,500 UNITS/HR 15 mls/hr IV CONT . [id number] [facility] Rx#:[id number] Oral 0 Patient Weight 02/16/24 23:59 Weight 115 kg
--- NOTE | 2024-02-16 08:30 | EST_ITS ---
Patient Info Name: Lebron Han Age: 63 years : 1960 Gender: Male Ht: 73 in Wt: 253 lbs BSA: 2.47 m2 HR: 64 bpm BP: 122 / 70 mmHg Exam Date: 02/16/2024 10:07 AM Exam Location: Echo Lab Patient Status: Inpatient Admit Date: 02/15/2024 Staff Ordering Physician: Marcos Romo DO Attending Provider: Scott Millard MD Exercise Technologist: Rebecca Streeter RDCS Exercise Physician: Marcos Romo DO Exam Type: CA stress basilio w NM Study Info A regadenoson stress test was performed. Summary 1. 1. Negative lexiscan stress test for ischemic ST changes by ECG criteria. 2. 2. Vasovagal episode with significant drop in BP that it could not be measured. This occurred with lexiscan injection. Aminophylline given for reversal. 2 chest compressions given for thready pulse and he regained consciousness with that. Rapid response was called. IVF given and BP recovered. 3. 3. Only resting nuclear images were performed. Protocol: Lexiscan Stress ECG Details Stage: REST Duration (min): 0 min : 55 sec HR (bpm): 65 SBP (mmHg): 122 DBP (mmHg): 70 Stage: REST Duration (min): 4 min : 48 sec HR (bpm): 63 SBP (mmHg): 122 DBP (mmHg): 70 Stage: STAGE 1 Duration (min): 1 min : 0 sec HR (bpm): 80 SBP (mmHg): 128 DBP (mmHg): 73 Stage: RECOVERY Duration (min): 1 min : 0 sec HR (bpm): 70 SBP (mmHg): 128 DBP (mmHg): 73 Stage: RECOVERY Duration (min): 2 min : 0 sec HR (bpm): 61 SBP (mmHg): 128 DBP (mmHg): 73 Stage: RECOVERY Duration (min): 3 min : 0 sec HR (bpm): 50 SBP (mmHg): 128 DBP (mmHg): 73 Stage: RECOVERY Duration (min): 4 min : 0 sec HR (bpm): 53 SBP (mmHg): 87 DBP (mmHg): 45 Stage: RECOVERY Duration (min): 5 min : 0 sec HR (bpm): 57 SBP (mmHg): 89 DBP (mmHg): 45 Stage: RECOVERY Duration (min): 6 min : 0 sec HR (bpm): 59 SBP (mmHg): 89 DBP (mmHg): 45 Stage: RECOVERY Duration (min): 7 min : 0 sec HR (bpm): 59 SBP (mmHg): 97 DBP (mmHg): 56 Stage: RECOVERY Duration (min): 8 min : 0 sec HR (bpm): 64 SBP (mmHg): 97 DBP (mmHg): 56 Stage: RECOVERY Duration (min): 9 min : 0 sec HR (bpm): 63 SBP (mmHg): 108 DBP (mmHg): 67 Stage: RECOVERY Duration (min): 9 min : 40 sec HR (bpm): --- SBP (mmHg): 108 DBP (mmHg): 67 Rest HR: 63 bpm Peak HR: 81 bpm Rest Sys BP: 122 mmHg Peak Sys BP: 128 mmHg Max Pred HR: 159 bpm % Max Pred HR: 51 % Target HR: 135 bpm Max RPP: 10,368 bpm*mmHg Termination Reason: Completed protocol Cardiac Symptoms: Unresponsivess due to vasovagal episode Total Time: 1 min : 0 sec Rest Mand[place]ano BP: 70 mmHg Peak [place]ano BP: 73 mmHg Total Dose: 0.4 mg Stress ECG No ST changes. Immediately after lexiscan injected patient became unresponsiveness, in sinus rhythm with normal HR at 60 bpm, but could not get a BP from automated BP cuff, and his pulse was thready. Aminophylline 100 mg IV was given. I gave 2 chest compressions and he woke up responding but would go in and out of consciousness. Rapid response was called and the team arrived immediately and gave IVF, oxygen. His BP then showed it was 89/60 mmHg. Patient responding that he was feeling OK. Arrhythmias None. Report Signatures
--- NOTE | 2024-02-16 09:25 | PC.NURSE ---
Pt to nuclear medicine via wheelchair for Lexiscan, and then to CT for abdomen and pelvis scan. Heparin drip paused for testing.
[2024-02-16 10:26] LABS: Glucose Point of Care 105 mg/dl (65-105)
[2024-02-16] MEDS: SODIUM CHLORIDE 0.9% IV 1,000 ML 999 ML IV CONT (10:30)
--- NOTE | 2024-02-16 10:30 | PC.NURSE ---
Pt returned to room via stretcher after rapid response
[2024-02-16] MEDS: HEPARIN SOD/D5W 100 UNITS/ML 25,000 UNITS/250 ML BAG 15 UNITS IV CONT (10:49)
[2024-02-16] MEDS: ASPIRIN 81 MG CHEWABLE TABLET PO (10:51)
--- NOTE | 2024-02-16 13:04 | PM.IMPN ---
Progress Note: A&P Assessment and Plan (1) Elevated troponin: Code(s): R79.89 - Other specified abnormal findings of blood chemistry Status: Acute Assessment and Plan: The patient presented to the emergency department for evaluation of right leg swelling and found to have elevated Troponin. EKG showing NSR with first degree AVB, incomplete right BBB and LAFB. CTA showing no PE or other cardiopulmonary disease. Troponins 0.46->0.56 ASA given. Heparin drip stareted. Cardiology consulted and patient underwent Lexiscan stress test this morning. The stress test showing no ischemic ST changes by ECG criteria. -- Patient had a vasovagal episode with significant drop in BP that it could not be measured. -- This occurred with lexiscan injection. Aminophylline given for reversal. -- Two chest compressions given for thready pulse and he regained consciousness with that. -- Rapid response was called. IVF given and BP recovered. Only resting nuclear images were performed. -- Nuclear images showing small focus of mild decreased activity along the mid-anteroseptal segment that is eqivocal for small infarct Continue Heparin drip. Continue ASA. Will make NPO for possible LHC in the morning. (2) Deep vein thrombosis of right lower extremity: Code(s): I82.401 - Acute embolism and thrombosis of unspecified deep veins of right lower extremity Status: Acute Assessment and Plan: Patient presented with RLE pain mostly in the right upper thigh. Doppler shows DVT in the right popliteal vein Chest CTA was negative for PE. Checked CT A/P to exclude adenopathy. CT A/P normal. He will need to be on lifelong anticoagulation Continue Heparin drip until okay by Cards to change to Eliquis. Plan DVT prophyalxis - Heparin Code status - full Subjective Date/time seen: 02/16/24 13:04 Interval history: 63yo male with hx of right leg DVT here for right lower extremity pain and swelling. Patient complains of some weight gain. He denies chest pain with exertion but does get SOB with exertion that may be worsening over the past few months. Some nausea prior to admisison. No headaches. Does have periodic night sweats. Exam Narrative: AF 97.2 136/61 65 18 95% ra Gen - NARD Chest - CTA bilaterally, nml RR CV - RRR S1/S2 Abd - Soft, NT/ND, Positive BS Ext - No pedal edema. fullness in the right ingunial area Neuro - Alert and oriented. Nonfocal exam. Psych - Nml mood and affect Skin - Warm and dry Objective Data Vital Signs Vital Signs: Vital Signs - 24 hr 02/15/24 13:49 02/15/24 17:34 02/15/24 19:00 Temperature 98.2 F 98.3 F 97.9 F Pulse Rate 69 61 61 Respiratory Rate 16 16 22 H Blood Pressure 144/68 H 133/78 139/87 Pulse Oximetry 98 98 97 Oxygen Delivery 02/15/24 20:46 02/15/24 23:06 02/15/24 23:25 Temperature 97.8 F 98.4 F Pulse Rate 63 64 67 Respiratory Rate 20 17 14 Blood Pressure 133/64 122/72 122/72 Pulse Oximetry 96 98 99 Oxygen Delivery 02/16/24 00:34 02/16/24 00:10 02/16/24 00:00 Temperature 98.4 F Pulse Rate 64 67 70 Respiratory Rate 14 14 Blood Pressure 133/62 Pulse Oximetry 96 99 Oxygen Delivery Room Air 02/16/24 02:00 02/16/24 03:45 02/16/24 04:00 Temperature Pulse Rate 62 62 61 Respiratory Rate 14 Blood Pressure Pulse Oximetry 96 Oxygen Delivery Room Air 02/16/24 04:58 02/16/24 05:58 02/16/24 07:38 Temperature 98.2 F 97.6 F Pulse Rate 58 L 62 63 Respiratory Rate 14 20 Blood Pressure 139/54 L 115/57 L Pulse Oximetry 95 96 Oxygen Delivery 02/16/24 08:00 02/16/24 08:00 02/16/24 10:42 Temperature Pulse Rate 63 62 Respiratory Rate 20 Blood Pressure Pulse Oximetry 96 97 Oxygen Delivery Room Air Room Air 02/16/24 10:30 02/16/24 10:54 02/16/24 10:00 Temperature 97.2 F L Pulse Rate 65 57 L Respiratory Rate 18 Blood Pressure 136/78 136/61 Pulse Oximetry 95 Oxygen Delivery Intake/Output Intake/Output: Intake & Output 02/13/24 02/14/24 02/15/24 02/16/24 23:59 23:59 23:59 23:59 Intake Total 1242.3 Balance 1242.3 Meds/Results Medications: Active Medications Generic Name Dose Route Start Last Admin Trade Name Freq PRN Reason Stop Dose Admin Acetaminophen 650 mg 02/15/24 23:24 Acetaminophen 325 Mg Tablet PO Q6H PRN Mild Pain (1-3) or Fever Hydrocodone Bitart/Acetaminophen 1 tab 02/15/24 23:24 Hydrocodone/Acetaminophen (*Crx) 5-325 Mg Tablet PO Q6H PRN Pain Rated 4-6 Aspirin 81 mg 02/16/24 08:20 02/16/24 10:51 Aspirin 81 Mg Chewable Tablet PO 81 mg DAILY@0800 [facility] Administration Heparin Sodium (Porcine) 7,500 units 02/15/24 18:24 Heparin Sodium 5,000 Units/Ml Vial IV PUSH PRN PRN aPTT less than 55 seconds Heparin Sodium (Porcine) 4,000 units 02/15/24 18:24 Heparin Sodium 5,000 Units/Ml Vial IV PUSH PRN PRN aPTT 55 - 70 seconds Heparin Sodium/Dextrose 25,000 units in 250 mls @ 15 mls/hr 02/15/24 18:25 02/16/24 10:49 Heparin Sodium/D5w 100 Units/Ml IV CONT 1,500 units/hr .[id number] [facility] 15 mls/hr Administration Protocol 1,500 UNITS/HR Morphine Sulfate 2 mg 02/15/24 23:24 Morphine Sulfate (*Crx) 2 Mg/Ml Inj IV PUSH Q4H PRN Pain Rated 7-10 Perflutren Lipid Microsphere 0 ml 02/15/24 19:19 Perflutren Lipid Microspheres 1.5 Ml Vial Diluted To 10 Ml Total Volume IV PUSH 02/18/24 19:19 ONCE PRN adequate visualization Protocol Radiology Results: ITS Impressions Venous Doppler Study 02/15/24 14:14 IMPRESSION: Deep vein thrombosis. Chest CTA 02/15/24 16:20 IMPRESSION: No CT evidence of acute pulmonary embolus. No acute process detected in the chest. Labs Labs: Laboratory Results - last 24 hr 02/15/24 02/15/24 02/15/24 15:45 15:45 15:45 WBC 5.3 RBC 4.50 L Hgb 14.1 Hct 41.4 L MCV 92.0 MCH 31.3 MCHC 34.1 RDW 12.0 Plt Count 249 MPV 10.3 Immature Gran % (Auto) 0.6 H Neut % (Auto) 68.9 Lymph % (Auto) 15.3 L [place] % (Auto) 9.3 H Eos % (Auto) 5.5 H Baso % (Auto) 0.4 Lymph # (Auto) 0.81 L [place] # (Auto) 0.5 Eos # (Auto) 0.3 Baso # (Auto) 0.0 Abs Immat Gran (auto) 0.03 Absolute Neuts (auto) 3.6 Absolute Nucleated RBC 0.000 Nucleated RBC % 0.0 PT 14.1 INR 1.1 APTT 38.3 H Sodium Cancelled 136 L Potassium Cancelled 3.8 Chloride Cancelled Carbon Dioxide Anion Gap BUN Creatinine Estim Creat Clear Calc Estimated GFR Glucose POC Capillary Glucose Calcium Magnesium Total Bilirubin AST ALT Alkaline Phosphatase Troponin I NT-Pro-B Natriuret Pep Total Protein Albumin 02/15/24 02/15/24 02/15/24 15:45 15:45 15:45 WBC RBC Hgb Hct MCV MCH MCHC RDW Plt Count MPV Immature Gran % (Auto) Neut % (Auto) Lymph % (Auto) [place] % (Auto) Eos % (Auto) Baso % (Auto) Lymph # (Auto) [place] # (Auto) Eos # (Auto) Baso # (Auto) Abs Immat Gran (auto) Absolute Neuts (auto) Absolute Nucleated RBC Nucleated RBC % PT INR APTT Sodium Potassium Chloride 101 Carbon Dioxide Cancelled 29 Anion Gap Cancelled 6 BUN Cancelled Creatinine Estim Creat Clear Calc Estimated GFR Glucose POC Capillary Glucose Calcium Magnesium Total Bilirubin AST ALT Alkaline Phosphatase Troponin I NT-Pro-B Natriuret Pep Total Protein Albumin 02/15/24 02/15/24 02/15/24 15:45 15:45 15:45 WBC RBC Hgb Hct MCV MCH MCHC RDW Plt Count MPV Immature Gran % (Auto) Neut % (Auto) Lymph % (Auto) [place] % (Auto) Eos % (Auto) Baso % (Auto) Lymph # (Auto) [place] # (Auto) Eos # (Auto) Baso # (Auto) Abs Immat Gran (auto) Absolute Neuts (auto) Absolute Nucleated RBC Nucleated RBC % PT INR APTT Sodium Potassium Chloride Carbon Dioxide Anion Gap BUN 12 D Creatinine Cancelled 0.90 Estim Creat Clear Calc Cancelled 101 Estimated GFR Cancelled Glucose POC Capillary Glucose Calcium Magnesium Total Bilirubin AST ALT Alkaline Phosphatase Troponin I NT-Pro-B Natriuret Pep Total Protein Albumin 02/15/24 02/15/24 02/15/24 15:45 15:45 15:45 WBC RBC Hgb Hct MCV MCH MCHC RDW Plt Count MPV Immature Gran % (Auto) Neut % (Auto) Lymph % (Auto) [place] % (Auto) Eos % (Auto) Baso % (Auto) Lymph # (Auto) [place] # (Auto) Eos # (Auto) Baso # (Auto) Abs Immat Gran (auto) Absolute Neuts (auto) Absolute Nucleated RBC Nucleated RBC % PT INR APTT Sodium Potassium Chloride Carbon Dioxide Anion Gap BUN Creatinine Estim Creat Clear Calc Estimated GFR > 60 Glucose Cancelled 118 H POC Capillary Glucose Calcium Cancelled 8.7 Magnesium Total Bilirubin Cancelled AST ALT Alkaline Phosphatase Troponin I NT-Pro-B Natriuret Pep Total Protein Albumin 02/15/24 02/15/24 02/15/24 15:45 15:45 15:45 WBC RBC Hgb Hct MCV MCH MCHC RDW Plt Count MPV Immature Gran % (Auto) Neut % (Auto) Lymph % (Auto) [place] % (Auto) Eos % (Auto) Baso % (Auto) Lymph # (Auto) [place] # (Auto) Eos # (Auto) Baso # (Auto) Abs Immat Gran (auto) Absolute Neuts (auto) Absolute Nucleated RBC Nucleated RBC % PT INR APTT Sodium Potassium Chloride Carbon Dioxide Anion Gap BUN Creatinine Estim Creat Clear Calc Estimated GFR Glucose POC Capillary Glucose Calcium Magnesium Total Bilirubin 0.8 AST Cancelled 47 ALT Cancelled 32 Alkaline Phosphatase Cancelled Troponin I NT-Pro-B Natriuret Pep Total Protein Albumin 02/15/24 02/15/24 02/15/24 15:45 15:45 15:45 WBC RBC Hgb Hct MCV MCH MCHC RDW Plt Count MPV Immature Gran % (Auto) Neut % (Auto) Lymph % (Auto) [place] % (Auto) Eos % (Auto) Baso % (Auto) Lymph # (Auto) [place] # (Auto) Eos # (Auto) Baso # (Auto) Abs Immat Gran (auto) Absolute Neuts (auto) Absolute Nucleated RBC Nucleated RBC % PT INR APTT Sodium Potassium Chloride Carbon Dioxide Anion Gap BUN Creatinine Estim Creat Clear Calc Estimated GFR Glucose POC Capillary Glucose Calcium Magnesium Total Bilirubin AST ALT Alkaline Phosphatase 71 Troponin I 0.466 H* NT-Pro-B Natriuret Pep 260 H Total Protein Cancelled 7.0 Albumin Cancelled 4.1 02/15/24 02/15/24 02/16/24 18:37 22:05 00:36 WBC RBC Hgb Hct MCV MCH MCHC RDW Plt Count MPV Immature Gran % (Auto) Neut % (Auto) Lymph % (Auto) [place] % (Auto) Eos % (Auto) Baso % (Auto) Lymph # (Auto) [place] # (Auto) Eos # (Auto) Baso # (Auto) Abs Immat Gran (auto) Absolute Neuts (auto) Absolute Nucleated RBC Nucleated RBC % PT INR APTT 99.5 H Sodium Potassium Chloride Carbon Dioxide Anion Gap BUN Creatinine Estim Creat Clear Calc Estimated GFR Glucose POC Capillary Glucose Calcium Magnesium Total Bilirubin AST ALT Alkaline Phosphatase Troponin I 0.484 H* 0.558 H* NT-Pro-B Natriuret Pep Total Protein Albumin 02/16/24 02/16/24 06:51 10:21 WBC 4.4 L RBC 4.42 L Hgb 14.2 Hct 40.5 L MCV 91.6 MCH 32.1 MCHC 35.1 RDW 12.0 Plt Count 232 MPV 10.3 Immature Gran % (Auto) 0.7 H Neut % (Auto) 66.5 Lymph % (Auto) 15.8 L [place] % (Auto) 9.3 H Eos % (Auto) 7.7 H Baso % (Auto) 0.0 L Lymph # (Auto) 0.70 L [place] # (Auto) 0.4 Eos # (Auto) 0.3 Baso # (Auto) 0.0 Abs Immat Gran (auto) 0.03 Absolute Neuts (auto) 2.9 Absolute Nucleated RBC 0.000 Nucleated RBC % 0.0 PT INR APTT 79.2 H Sodium 134 L Potassium 4.0 Chloride 102 Carbon Dioxide 30 Anion Gap 2 L BUN 10 Creatinine 0.90 Estim Creat Clear Calc 101 Estimated GFR > 60 Glucose 115 H POC Capillary Glucose 105 Calcium 8.4 Magnesium 2.0 Total Bilirubin AST ALT Alkaline Phosphatase Troponin I NT-Pro-B Natriuret Pep Total Protein Albumin
[2024-02-17] VITALS (11 sets, daily range): BP systolic 100–127; BP diastolic 59–68; PULSE 54–66; RESP 16–20; TEMP 36.6–36.8; O2SAT 92–97
[2024-02-17] MEDS: HEPARIN SOD/D5W 100 UNITS/ML 25,000 UNITS/250 ML BAG 15 UNITS IV CONT (04:38)
[2024-02-17 05:25] LABS: Basophils Percent Auto 0.3 % (0.2-1.2); Eosinophils Absolute Auto 0.4 K/mm3 (0-0.3); Eosinophils Percent Auto 11.3 % (0-4.4); Hematocrit 39.1 % (42.0-52.0); Hemoglobin 13.8 g/dL (14.0-18.0); Immature Granulocyte Absolute 0.02 K/mm3 (0.00-0.031); Immature Granulocyte Percent A 0.5 % (0-0.5); Lymphocytes Absolute Auto 0.71 K/mm3 (0.9-3.2); Lymphocytes Percent Auto 18.7 % (18.3-44.2); Mean Corpuscular HGB Conc 35.3 g/dl (32-36); Mean Corpuscular Volume 90.7 fl (80-100); Mean Platelet Volume 10.5 fl (7.4-10.4); Monocytes Absolute Auto 0.4 K/mm3 (0.1-0.6); Monocytes Percent Auto 9.2 % (2.6-8.5); Neutrophils Absolute Auto 2.3 K/mm3 (1.3-6.7); Platelet Count Result 232 k/mm3 (150-375); Red Blood Count 4.31 M/mm3 (4.6-6.20); White Blood Count 3.8 K/mm3 (4.5-10.0)
[2024-02-17 05:34] LABS: Anion Gap 6 mmol/L (4-12); Blood Urea Nitrogen 12 mg/dL (9-20); Calcium 8.4 mg/dL (8.4-10.2); Carbon Dioxide 29 mmol/L (22-30); Chloride 103 mmol/L (98-107); Estimated CRCL calculation 101 ml/min; Estimated Glomerular Filt Rate > 60; Glucose 113 mg/dL (65-110); Potassium 3.9 mmol/L (3.4-5.0); Sodium 138 mmol/L (137-145)
[2024-02-17 05:37] LABS: Partial Thromboplastin Time 75.1 Seconds (22.3-36.8)
[2024-02-17 05:48] LABS: Troponin I 0.339 ng/mL (0.000-0.034)
--- NOTE | 2024-02-17 08:01 | P.PNCA_ITS ---
Progress Note: A&P Assessment and Plan (1) Deep vein thrombosis of right lower extremity: Code(s): I82.401 - Acute embolism and thrombosis of unspecified deep veins of right lower extremity Status: Acute Assessment and Plan: DVT of popliteal artery. CTA chest negative for PE. On heparin drip. May change heparin drip to Xarelto DVT protocol dosing. Have him f/u with PCP for it as he treated him for it in past. (2) Exertional dyspnea: Code(s): R06.09 - Other forms of dyspnea Status: Acute Assessment and Plan: Stable. (3) Elevated troponin: Code(s): R79.89 - Other specified abnormal findings of blood chemistry Status: Acute Assessment and Plan: Trending up and moderately elevated and peaked at 0.558.Likely due to DVT. No symptoms to suggest ACS. 02/16/24 Echo: EF 65-70%, grade I diastolic dysfunction (E/e' 12), mild LAE, trace TR. 02/16/24 Lexiscan myoview: Inadequate as no stress portion scan performed due to severe vasodepressive vasovagal episode occurring with Lexisan injection. Apparently he now relates a history of frequent severe vasovagal episodes such as during cortisone injection in his ankle, during ear cleaning, etc. This is benign but severe drop in BP that needs to avoid triggers and made aware to everyone he is with especially healthcare providers. Informed patient of this. No further cardiac workup is needed. May d/c home from cardiology standpoint. Subjective Date/time seen: 02/17/24 08:01 Interval history: Denies chest pain or sob. Exam Const: General: cooperative, healthy appearing and comfortable Orientation/consciousness: oriented to person, oriented to place and oriented to time Resp: Auscultation: clear to auscultation bilaterally, no crackles, no rales, no rhonchi and no wheezes Cardio: Rate: regular rate Rhythm: regular rhythm Heart sounds: no murmurs Peripheral pulses: dorsalis pedis present Neuro: General: oriented to person, oriented to place and oriented to time Extrem: Right lower extremity: no edema Left lower extremity: no edema Objective Data Vital Signs Vital Signs: Vital Signs - 24 hr 02/16/24 10:42 02/16/24 10:30 02/16/24 10:54 Temperature 97.2 F L Pulse Rate 65 Respiratory Rate 18 Blood Pressure 136/78 136/61 Pulse Oximetry 97 95 Oxygen Delivery Room Air 02/16/24 10:00 02/16/24 12:00 02/16/24 12:00 Temperature Pulse Rate 57 L 65 60 Respiratory Rate 18 Blood Pressure Pulse Oximetry 95 Oxygen Delivery Room Air 02/16/24 14:00 02/16/24 15:46 02/16/24 16:00 Temperature 97.5 F L Pulse Rate 60 63 63 Respiratory Rate 18 18 Blood Pressure 125/61 Pulse Oximetry 95 95 Oxygen Delivery Room Air 02/16/24 16:00 02/16/24 18:38 02/16/24 18:39 Temperature 98.1 F Pulse Rate 62 68 71 Respiratory Rate Blood Pressure 138/74 138/74 Pulse Oximetry 97 Oxygen Delivery 02/16/24 18:41 02/16/24 18:00 02/16/24 19:51 Temperature 98.2 F Pulse Rate 74 67 62 Respiratory Rate 16 Blood Pressure 136/77 141/63 H Pulse Oximetry 92 Oxygen Delivery 02/16/24 21:30 02/16/24 20:00 02/16/24 22:00 Temperature Pulse Rate 62 65 63 Respiratory Rate 16 Blood Pressure Pulse Oximetry 92 Oxygen Delivery Room Air 02/17/24 00:15 02/17/24 00:00 02/17/24 00:00 Temperature 98.2 F Pulse Rate 63 63 60 Respiratory Rate 16 16 Blood Pressure 100/59 L Pulse Oximetry 92 97 Oxygen Delivery Room Air 02/17/24 02:00 02/17/24 04:35 02/17/24 04:00 Temperature 98 F Pulse Rate 55 L 55 L 62 Respiratory Rate 16 16 Blood Pressure 108/63 Pulse Oximetry 92 97 Oxygen Delivery Room Air 02/17/24 04:00 02/17/24 06:00 Temperature Pulse Rate 58 L 54 L Respiratory Rate Blood Pressure Pulse Oximetry Oxygen Delivery Intake/Output Intake/Output: Intake & Output 02/14/24 02/15/24 02/16/24 02/17/24 23:59 23:59 23:59 23:59 Intake Total 1782.3 665 Output Total 240 Balance 1542.3 665 Meds/Results Medications: Active Medications Generic Name Dose Route Start Last Admin Trade Name Freq PRN Reason Stop Dose Admin Acetaminophen 650 mg 02/15/24 23:24 Acetaminophen 325 Mg Tablet PO Q6H PRN Mild Pain (1-3) or Fever Hydrocodone Bitart/Acetaminophen 1 tab 02/15/24 23:24 Hydrocodone/Acetaminophen (*Crx) 5-325 Mg Tablet PO Q6H PRN Pain Rated 4-6 Aspirin 81 mg 02/16/24 08:20 02/16/24 10:51 Aspirin 81 Mg Chewable Tablet PO 81 mg DAILY@0800 JOCELYNN Administration Heparin Sodium (Porcine) 7,500 units 02/15/24 18:24 Heparin Sodium 5,000 Units/Ml Vial IV PUSH PRN PRN aPTT less than 55 seconds Heparin Sodium (Porcine) 4,000 units 02/15/24 18:24 Heparin Sodium 5,000 Units/Ml Vial IV PUSH PRN PRN aPTT 55 - 70 seconds Heparin Sodium/Dextrose 25,000 units in 250 mls @ 15 mls/hr 02/15/24 18:25 02/17/24 05:38 Heparin Sodium/D5w 100 Units/Ml IV CONT 1,500 units/hr .[id number] JOCELYNN 15 mls/hr Titration Protocol 1,500 UNITS/HR Morphine Sulfate 2 mg 02/15/24 23:24 Morphine Sulfate (*Crx) 2 Mg/Ml Inj IV PUSH Q4H PRN Pain Rated 7-10 Perflutren Lipid Microsphere 0 ml 02/15/24 19:19 Perflutren Lipid Microspheres 1.5 Ml Vial Diluted To 10 Ml Total Volume IV PUSH 02/18/24 19:19 ONCE PRN adequate visualization Protocol Radiology Results: ITS Impressions Venous Doppler Study 02/15/24 14:14 IMPRESSION: Deep vein thrombosis. Chest CTA 02/15/24 16:20 IMPRESSION: No CT evidence of acute pulmonary embolus. No acute process detected in the chest. Lexiscan Stress Test 02/16/24 14:41 IMPRESSION: 1. Incomplete study with no post stress imaging obtained due to a transient syncopal episode. 2. Small focus of mild decreased activity along the mid anteroseptal segment equivocal for small mild infarct. Abdomen/Pelvis CT 02/16/24 15:52 IMPRESSION: 1. No acute intra-abdominal/pelvic process. Labs Labs: Laboratory Results - last 24 hr 02/16/24 02/17/24 10:21 04:44 WBC 3.8 L RBC 4.31 L Hgb 13.8 L Hct 39.1 L MCV 90.7 MCH 32.0 MCHC 35.3 RDW 12.0 Plt Count 232 MPV 10.5 H Immature Gran % (Auto) 0.5 Neut % (Auto) 60.0 Lymph % (Auto) 18.7 [place] % (Auto) 9.2 H Eos % (Auto) 11.3 H Baso % (Auto) 0.3 Lymph # (Auto) 0.71 L [place] # (Auto) 0.4 Eos # (Auto) 0.4 H Baso # (Auto) 0.0 Abs Immat Gran (auto) 0.02 Absolute Neuts (auto) 2.3 Absolute Nucleated RBC 0.000 Nucleated RBC % 0.0 APTT 75.1 H Sodium 138 Potassium 3.9 Chloride 103 Carbon Dioxide 29 Anion Gap 6 BUN 12 Creatinine 0.90 Estim Creat Clear Calc 101 Estimated GFR > 60 Glucose 113 H POC Capillary Glucose 105 Calcium 8.4 Troponin I 0.339 H*
[2024-02-17] MEDS: ASPIRIN 81 MG CHEWABLE TABLET PO (09:08)
--- NOTE | 2024-02-17 13:07 | PC.NURSE ---
Discussed discharge orders with patient and family member. Verbalizes understanding related to orders and medications, denies further questions at this time.
--- NOTE | 2024-02-17 14:51 | P.DS_ITS ---
DS: Admitting Diagnosis Discharge Date 02/17/24 Admitting Diagnosis Right lower extremity pain and swelling. DS: Discharge Diagnosis Discharge Diagnosis (1) Elevated troponin: Code(s): R79.89 - Other specified abnormal findings of blood chemistry Status: Acute Assessment and Plan: The patient presented to the emergency department for evaluation of right leg swelling and found to have elevated Troponin. EKG showing NSR with first degree AVB, incomplete right BBB and LAFB. CTA showing no PE or other cardiopulmonary disease. Troponins 0.46->0.56 ASA given. Heparin drip stareted. Cardiology consulted and patient underwent Lexiscan stress test this morning. The stress test showing no ischemic ST changes by ECG criteria. -- Patient had a vasovagal episode with significant drop in BP that it could not be measured. -- This occurred with lexiscan injection. Aminophylline given for reversal. -- Two chest compressions given for thready pulse and he regained consciousness with that. -- Rapid response was called. IVF given and BP recovered. Only resting nuclear images were performed. -- Nuclear images showing small focus of mild decreased activity along the mid- anteroseptal segment that is eqivocal for small infarct Continue Heparin drip. Continue ASA. Will make NPO for possible LHC in the morning. (2) Deep vein thrombosis of right lower extremity: Code(s): I82.401 - Acute embolism and thrombosis of unspecified deep veins of right lower extremity Status: Acute Assessment and Plan: Patient presented with RLE pain mostly in the right upper thigh. Doppler shows DVT in the right popliteal vein Chest CTA was negative for PE. Checked CT A/P to exclude adenopathy. CT A/P normal. He will need to be on lifelong anticoagulation Continue Heparin drip until okay by Cards to change to Eliquis. Plan DVT prophyalxis - Heparin Code status - full DS: Summary Hospital Course Reason for hospitalization: Right lower extremity pain and swelling. Hospital Course: 63 years old male was admitted complained of right lower extremity pain and swelling. Patient was found to have DVT. Troponin was also slightly elevated. During the stay in the hospital patient was given blood thinner and Xarelto. Today patient was feeling better and was discharged home in stable condition follow-up scheduled. Status at Discharge Cognitive/behavioral status at discharge: Stable Time Spent with Patient Time attestation: Total time spent providing and/or coordinating discharge services: 30 minutes. Exam Narrative: AF 97.2 136/61 65 18 95% ra Gen - NARD Chest - CTA bilaterally, nml RR CV - RRR S1/S2 Abd - Soft, NT/ND, Positive BS Ext - No pedal edema. fullness in the right ingunial area Neuro - Alert and oriented. Nonfocal exam. Psych - Nml mood and affect Skin - Warm and dry DS: Data Data Completed and Pending Labs on day of discharge: Labs from last 24 hours 02/17/24 04:44 WBC 3.8 L RBC 4.31 L Hgb 13.8 L Hct 39.1 L MCV 90.7 MCH 32.0 MCHC 35.3 RDW 12.0 Plt Count 232 MPV 10.5 H Immature Gran % (Auto) 0.5 Neut % (Auto) 60.0 Lymph % (Auto) 18.7 [place] % (Auto) 9.2 H Eos % (Auto) 11.3 H Baso % (Auto) 0.3 Lymph # (Auto) 0.71 L [place] # (Auto) 0.4 Eos # (Auto) 0.4 H Baso # (Auto) 0.0 Abs Immat Gran (auto) 0.02 Absolute Neuts (auto) 2.3 Absolute Nucleated RBC 0.000 Nucleated RBC % 0.0 APTT 75.1 H Sodium 138 Potassium 3.9 Chloride 103 Carbon Dioxide 29 Anion Gap 6 BUN 12 Creatinine 0.90 Estim Creat Clear Calc 101 Estimated GFR > 60 Glucose 113 H Calcium 8.4 Troponin I 0.339 H* Discharge Plan Discharge Attending physician on discharge: Vern Saavedra Consulting providers: Marcos Romo Discharging Clinician: Vern Saavedra Anticipated Discharge Date/Time: 02/17/24 12:42 Patient Disposition: Home, Self-Care Activity: as tolerated Diet: heart healthy Discharge Instructions: DVT Patient Instructions: Antibiotic Form, Heparin (By injection), Syncope (DC), Pain Management (DC), Deep Vein Thrombosis (DC), Hypotension (DC), High Troponin Levels (GEN) Stand Alone Forms: General Discharge Information Follow-up/Referrals: Marcos Romo DO [Physician] - Markos Woodard DO [Primary Care Provider] - Discharge Medications: New aspirin [Children's Aspirin] 81 mg Tablet,Chewable 81 mg PO DAILY@0800 Qty: 30 0RF Xarelto DVT-PE Treat 30d Start 15 mg (42)- 20 mg (9) tablets,dose pack See Rx Instructions .ROUTE .COMPLEX Qty: 51 0RF Rx Instructions: take one-15 mg tablet twice daily for 21 days, then one-20 mg tablet once daily; must take with meal/food Date of admission: 02/15/24 18:31 Primary Care Provider: Markos Woodard Admitting Provider: Scott Millard Attending physician on admission: Scott Millard Condition: Stable Quality VTE Prophylaxis VTE prophylaxis: pharmacologic ordered (on a heparin drip)
[2024-02-26 10:36] LABS: Estimated CRCL calculation 89 ml/min; Estimated Glomerular Filt Rate > 60
== END 2024-02-17 13:15 | disposition home or self-care (01) ==
LOC: ANHED 21:27 → ANHIMU 23:22
PROVIDERS: Internal Medicine; Internal Medicine Cardiovascular Disease; Nurse Practitioner; Physician Assistant; Admitting Provider General Practice; Emergency Provider Emergency Medicine; PCP Family Medicine; Visit Provider Internal Medicine
DX: I82.431 Acute embolism and thrombosis of right popliteal vein (principal); R06.09 Other forms of dyspnea; R79.89 Other specified abnormal findings of blood chemistry; E66.9 Obesity, unspecified; Z68.33 Body mass index [BMI] 33.0-33.9, adult; Z86.718 Personal history of other venous thrombosis and embolism; Z87.891 Personal history of nicotine dependence
CPT/HCPCS: 36415; 71275; 74177; 78452; 80048; 80053; 82565; 82948; 83735; 83880; 84484; 85025; 85610; 85730; 93005; 93017; 93306; 93971; 96365; 96366; 96374; 99285; A9270; A9502; G0378; J0280; J1644; J2785; J7030; Q9967